=== PATIENT | female | born 1955 | race African-American/Black ===

== ENCOUNTER 2017-12-31 13:52 | Emergency (ER) | payer BC, OTHER ==
--- OUTSIDE RECORDS SUMMARY | 2017-12-31 13:54 | XMS REPORT | Clinical Summary ---
:1955 Author Organization [facility] Address [address] [place] [id number] Care Team Providers Name Role Phone Daniel Rodriguez MD Primary Care Provider Allergies Active Allergy Reactions Severity Noted Date Comments Soy 05/03/2016 Sulfa (Sulfonamide Antibiotics) 05/03/2016 Medications Medication Sig Dispensed Refills Start Date End Date Status gabapentin (NEURONTIN) 100 mg 0 08/10/2016 Active capsule Active Problems No known active problems Encounters Date Type Specialty Care Team Description 10/04/2017 Office Visit Orthopedic Surgery Tory Mancuso Primary osteoarthritis of MARY Dent right knee (Primary Dx) after 12/30/2016 Social History Tobacco Use Types Packs/Day Years Used Date Never Smoker Smokeless Tobacco: Never Used Alcohol Use Drinks/Week oz/Week Comments No Sex Assigned at Date Recorded Not on file Job Start Date Occupation Industry Not on file Not on file Not on file Travel History Travel Start Travel End No recent travel history available. Last Filed Vital Signs Vital Sign Reading Time Taken Blood Pressure - - Pulse - - Temperature - - Respiratory Rate - - Oxygen Saturation - - Inhaled Oxygen Concentration - - Weight 127 kg (280 lb) 10/04/2017 2:33 PM CDT Height 166.4 cm (5' 5.5") 10/04/2017 2:33 PM CDT Body Mass Index 45.89 10/04/2017 2:33 PM CDT Plan of Treatment Date Type Specialty Care Team Description 04/06/2018 Office Visit Orthopedic Surgery Sg Castro MD [address] [place] [address] Health Maintenance Due Date Last Done Comments CERVICAL CANCER SCREENING 02/08/1976 BREAST CANCER SCREENING 2005 COLON CANCER SCREENING 2005 SHINGRIX VACCINE (#1) 2005 ZOSTER VACCINE 2015 INFLUENZA VACCINE 09/20/2017 Procedures Procedure Name Priority Date/Time Associated Diagnosis Comments CT ARTHROCENTESIS Routine 10/04/2017 2:15 Primary Results for this ASPIR&/INJ MAJOR PM CDT osteoarthritis of procedure are in JT/BURSA W/O US right knee the results section. after 12/30/2016 Results Large Joint Arthrocentesis (10/04/2017 2:15 PM CDT) Narrative Performed At Tory Mancuso PA-C 10/04/20172:58 PM Large Joint Arthrocentesis Consent given by: patient Site marked: site marked Timeout: Immediately prior to procedure a time out was called to verify the correct patient, procedure, equipment, student support services director and site/side marked as required Supporting Documentation Indications: pain and diagnostic evaluation Procedure Details Preparation: Patient was prepped and draped in the usual sterile fashion Ultrasound guided: no Location: knee - R knee Right side: Needle size: 22 G Approach: anterolateral Right knee medications administered: 40 mg methylPREDNISolone acetate 40 mg/mL; 2 mL bupivacaine 0.25 % (2.5 mg/mL); 2 mL lidocaine 10 mg/mL (1 %) Patient tolerance: patient tolerated the procedure well with no immediate complications after 12/30/2016 Insurance Payer Benefit Plan / Group Subscriber ID Type Phone Address [facility]UE [employer]SSENTIALS xxxxxxxxxxxx O xxxxxxxxx Advance Directives Patient has advance care planning documents on file. For more information, please contact:[place] [address]
[2017-12-31 14:52] LABS: Absolute Lymphocytes (CBC) 1.7 K/uL (0.7-4.9); Absolute Monocytes 0.5 K/uL (0.1-1.3); Absolute Neutrophil 4.6 K/uL (1.8-8.0); Basophils % 0.6 % (0-1.3); Hematocrit 39.6 % (36.0-45.0); Lymphocytes % 24.1 % (15.3-44.8); MCV 75.3 fL (80-100); MPV 9.7 fL (7.6-11.3); Monocytes % 7.7 % (3.3-12.3); Protime INR 1.08; RBC Red Blood Cell Count 5.25 M/uL (3.86-4.86)
[2017-12-31 15:04] LABS: BUN Blood Urea Nitrogen 8 mg/dL (7-18); Bicarbonate 27 mmol/L (21-32); Glucose Level 83 mg/dL (74-106); Potassium 3.6 mmol/L (3.5-5.1); Sodium Level 142 mmol/L (136-145); Troponin (Emerg Dept Use Only) < 0.02 ng/mL (0.0-0.045)
--- NOTE | 2017-12-31 15:19 | RAD REPORT ---
EXAM DESCRIPTION: RAD - Chest Single View - 12/31/2017 2:39 pm CLINICAL HISTORY: Left-sided chest pain COMPARISON: April 2016 TECHNIQUE: AP portable chest image was obtained 1435 hours . FINDINGS: Lungs are clear. Heart and vasculature are normal. No measurable pleural effusion and no p neumothorax. No acute bony abnormality seen. No acute aortic findings suspected. IMPRESSION: No acute cardiopulmonary process. No significant interval change.
--- NOTE | 2017-12-31 16:03 | RAD REPORT ---
EXAM DESCRIPTION: CT - Chest Abdomen Pelvis W Cont - 12/31/2017 3:43 pm CLINICAL HISTORY: Left-sided chest pain, abdominal pain COMPARISON: None. TECHNIQUE: Following dynamic enhancement using 100 milliliters nonionic IV contrast, axial imaging o f the chest, abdomen and pelvis was performed. Biphasic technique was utilized through the abdomen. Oral contrast was administered. All CT scans are performed using dose optimization technique as appropriate and may include automated exposure control or mA/KV adjustment according to patient size. FINDINGS: No suspicious mass or infiltrate in the lung parenchyma. No pleural effusion, pleural thic kening or pneumothorax. No significant aortic or pulmonary arterial tree finding. Nonspecific mediast inal and hilar noncalcified lymph nodes are present. These are probably reactive. No comparison is av ailable. No chest wall mass or axillary lymphadenopathy. The liver, spleen and pancreas show no suspicious findings. Gallbladder and biliary tree are unremark able. Gallstones can be occult on CT imaging. Symmetric renal function is seen with no mass or hydro nephrosis. No adrenal abnormalities. No gastric dilatation or wall thickening. No acute small bowel finding. No appendicitis findings. Fro m cecum through descending colon no significant colon process seen. Moderate sigmoid diverticulosis i s present. Proximal sigmoid colon is slightly thickened in appearance. There is trace amount of stran ding in the adjacent fat. Distal sigmoid and rectum show no acute finding. Uterus and ovaries show no suspicious findings. No acute or destructive bony process. Degenerative changes are present. No significant vascular findings. IMPRESSION: Minimal sigmoid diverticulitis changes are evident. No acute CT chest finding. Patient has nonspecific mediastinal and hilar lymph nodes without lung mass acute lung parenchymal pr ocess. These are likely reactive but no comparison available to establish stability.Repeat CT chest s tudy in 4-6 months could be performed to monitor for stability.
--- NOTE | 2017-12-31 18:31 | EDPHYS ---
Physician Documentation [facility] Name: Ana Cristina Olivera Age: 62 yrs Sex: Female : 1955 Arrival Date: 12/31/2017 Time: 13:55 Bed 5 Private MD: Daniel Rodriguez E ED Physician Richard John HPI: 12/31 17:25 This 62 yrs old Black Female presents to ER via Ambulatory with complaints of Chest gs Pain, Flank Pain. 17:25 Onset: suddenly, just prior to arrival. The pain does not radiate. Associated signs and gs symptoms: Pertinent negatives: shortness of breath. The chest pain is described as sharp. Duration: The patient or guardian reports a single episode, that is still ongoing, but improving. Modifying factors: The symptoms are alleviated by nothing. the symptoms are aggravated by nothing. Severity of pain: At its worst the pain was severe in the emergency department the pain has improved markedly. Historical: - Allergies: 14:00 Soy (Rash); hb 14:00 Sulfa (Sulfonamide Antibiotics) (Hives); hb - PMHx: 14:00 Depression; hb - PSHx: 14:00 None; hb - Immunization history:: Adult Immunizations up to date. - Social history:: Smoking status: Patient/guardian denies using tobacco. - Ebola Screening: : No symptoms or risks identified at this time. ROS: 17:25 All other systems are negative. gs Exam: 17:25 Head/Face: Normocephalic, atraumatic. Eyes: Pupils equal round and reactive to light, gs extra-ocular motions intact. Lids and lashes normal. Conjunctiva and sclera are non-icteric and not injected. Cornea within normal limits. Periorbital areas with no swelling, redness, or edema. ENT: Nares patent. No nasal discharge, no septal abnormalities noted. Tympanic membranes are normal and external auditory canals are clear. Oropharynx with no redness, swelling, or masses, exudates, or evidence of obstruction, uvula midline. Mucous membranes moist. Neck: Trachea midline, no thyromegaly or masses palpated, and no cervical lymphadenopathy. Supple, full range of motion without nuchal rigidity, or vertebral point tenderness. No Meningismus. Chest/axilla: Normal chest wall appearance and motion. Nontender with no deformity. No lesions are appreciated. Cardiovascular: Regular rate and rhythm with a normal S1 and S2. No gallops, murmurs, or rubs. Normal PMI, no JVD. No pulse deficits. Respiratory: Lungs have equal breath sounds bilaterally, clear to auscultation and percussion. No rales, rhonchi or wheezes noted. No increased work of breathing, no retractions or nasal flaring. Abdomen/GI: Soft, non-tender, with normal bowel sounds. No distension or tympany. No guarding or rebound. No evidence of tenderness throughout. Back: No spinal tenderness. No costovertebral tenderness. Full range of motion. Skin: Warm, dry with normal turgor. Normal color with no rashes, no lesions, and no evidence of cellulitis. MS/ Extremity: Pulses equal, no cyanosis. Neurovascular intact. Full, normal range of motion. Neuro: Awake and alert, GCS 15, oriented to person, place, time, and situation. Cranial nerves II-XII grossly intact. Motor strength 5/5 in all extremities. Sensory grossly intact. Cerebellar exam normal. Normal gait. 17:25 Constitutional: The patient appears alert, awake. 17:25 ECG was reviewed by the Attending Physician. Vital Signs: 13:59 BP 168 / 91; Pulse 73; Resp 13; Temp 97.9; Pulse Ox 99% ; Weight 127.01 kg; Height 5 hb ft. 5 in. (165.10 cm); Pain 6/10; 15:34 BP 158 / 92; Pulse 75; Resp 18; Pulse Ox 100% on R/A; hj 16:30 BP 150 / 90; Pulse 79; Resp 18; Pulse Ox 100% on R/A; hj 17:30 BP 148 / 88; Pulse 74; Resp 18; Pulse Ox 100% on R/A; hj 18:11 BP 150 / 89; Pulse 76; Resp 18; Pulse Ox 100% on R/A; hj 13:59 Body Mass Index 46.59 (127.01 kg, 165.10 cm) hb MDM: 14:19 Patient medically screened. gs 17:25 Differential diagnosis: coronary artery disease chest wall pain, thoracic aortic gs disection. Data reviewed: vital signs, nurses notes. Counseling: I had a detailed discussion with the patient and/or guardian regarding: the historical points, exam findings, and any diagnostic results supporting the discharge/admit diagnosis, lab results, radiology results, the need for outpatient follow up. 18:00 Response to treatment: the patient's symptoms have resolved after treatment, the patient's pain is gone, the patient's condition has returned to base line. 12/31 14:18 Order name: Basic Metabolic Panel; Complete Time: 16:04 12/31 14:18 Order name: CBC with Diff; Complete Time: 16:04 12/31 14:18 Order name: PT-INR; Complete Time: 16:04 12/31 14:18 Order name: Troponin (emerg Dept Use Only); Complete Time: 16:04 12/31 14:32 Order name: Urine Dipstick--Ancillary (enter results) 12/31 14:18 Order name: XRAY Chest (1 view); Complete Time: 16:04 12/31 14:18 Order name: EKG; Complete Time: 14:19 12/31 14:18 Order name: Cardiac monitoring; Complete Time: 14:26 12/31 14:18 Order name: EKG - Nurse/Tech; Complete Time: 14: 12/31 14:18 Order name: IV Saline Lock; Complete Time: 14:26 12/31 14:18 Order name: Labs collected and sent; Complete Time: 14: 12/31 14:18 Order name: CT Chest, Abdomen, Pelvis - W/Contrast; Complete Time: 16: 12/31 16:59 Order name: Troponin (emerg Dept Use Only); Complete Time: 18:00 12/31 14:18 Order name: O2 Per Protocol; Complete Time: 14: 12/31 14:18 Order name: O2 Sat Monitoring; Complete Time: 14: EC:25 Rate is 68 beats/min. Rhythm is regular. OR interval is normal. QT interval is normal. gs T waves are Normal. No ST changes noted. Clinical impression: Normal ECG. Administered Medications: No medications were administered Disposition: 12/31/17 18:01 Discharged to Home. Impression: Chest pain, unspecified, Diverticulosis of large intestine without perforation or abscess without bleeding. - Condition is Stable. - Discharge Instructions: Nonspecific Chest Pain, Diverticulitis, [id number]. - Prescriptions for Flagyl 500 mg Oral Tablet - take 1 tablet by ORAL route every 12 hours for 5 days; 10 tablet. Keflex 500 mg Oral Capsule - take 1 capsule by ORAL route every 8 hours for 5 days; 15 capsule. - Medication Reconciliation Form, Thank You Letter, Antibiotic Education, Prescription Opioid Use form. - Follow up: Private Physician; When: 1 - 2 days; Reason: Re-evaluation by your physician. Signatures: Dispatcher [employer] EDNate Guy RN RN hj Baxter, Heather, RN RN hb Starr, Gregory, MD MD gs Corrections: (The following items were deleted from the chart) 18:13 18:01 12/31/2017 18:01 Discharged to Home. Impression: Chest pain, unspecified; hj Diverticulosis of large intestine without perforation or abscess without bleeding. Condition is Stable. Forms are Medication Reconciliation Form, Thank You Letter, Antibiotic Education, Prescription Opioid Use. Follow up: Private Physician; When: 1 - 2 days; Reason: Re-evaluation by your physician. gs
--- NOTE | 2017-12-31 18:31 | ER ---
Nurse's Notes [facility] Name: Ana Cristina Olivera Age: 62 yrs Sex: Female : 1955 Arrival Date: 12/31/2017 Time: 13:55 Bed 5 Private MD: Daniel Rodriguez E Diagnosis: Chest pain, unspecified;Diverticulosis of large intestine without perforation or abscess without bleeding Presentation: 12/31 13:57 Presenting complaint: Patient states: Sudden sharp left sided chest pain that started hb while driving car 2 hrs ago. Denies SOB/nausea. Transition of care: patient was not received from another setting of care. Onset of symptoms was December 31, 2017. Risk Assessment: Do you want to hurt yourself or someone else? Patient reports no desire to harm self or others. Care prior to arrival: None. 13:57 Method Of Arrival: Ambulatory hb 13:57 Acuity: JOEL 3 hb 14:16 Initial Sepsis Screen: Does the patient meet any 2 criteria? No. Patient's initial hj sepsis screen is negative. Does the patient have a suspected source of infection? No. Patient's initial sepsis screen is negative. Triage Assessment: 14:15 General: Appears in no apparent distress. uncomfortable, Behavior is calm, cooperative, hj appropriate for age. Pain: Complains of pain in chest. Cardiovascular: Capillary refill < 3 seconds Patient's skin is warm and dry. Historical: - Allergies: 14:00 Soy (Rash); hb 14:00 Sulfa (Sulfonamide Antibiotics) (Hives); hb - PMHx: 14:00 Depression; hb - PSHx: 14:00 None; hb - Immunization history:: Adult Immunizations up to date. - Social history:: Smoking status: Patient/guardian denies using tobacco. - Ebola Screening: : No symptoms or risks identified at this time. Screenin:15 Abuse screen: Denies threats or abuse. Denies injuries from another. Nutritional hj screening: No deficits noted. Tuberculosis screening: No symptoms or risk factors identified. Fall Risk None identified. Assessment: 14:16 General: Appears in no apparent distress. uncomfortable, Behavior is calm, cooperative, hj appropriate for age. Pain: Pain does not radiate. Neuro: Level of Consciousness is awake, alert, obeys commands, Oriented to person, place, time, situation, Appropriate for age. Cardiovascular: Capillary refill < 3 seconds Patient's skin is warm and dry. Respiratory: Airway is patent Respiratory effort is even, unlabored, Respiratory pattern is regular, symmetrical. GI: No signs and/or symptoms were reported involving the gastrointestinal system. : No signs and/or symptoms were reported regarding the genitourinary system. EENT: No signs and/or symptoms were reported regarding the EENT system. Derm: No signs and/or symptoms reported regarding the dermatologic system. Musculoskeletal: No signs and/or symptoms reported regarding the musculoskeletal system. 14:16 Pain: Pain began 2 hours ago. hj 15:33 Reassessment: Patient and/or family updated on plan of care and expected duration. Pain hj level reassessed. Patient is alert, oriented x 3, equal unlabored respirations, skin warm/dry/pink. wheeled to CT:. Vital Signs: 13:59 BP 168 / 91; Pulse 73; Resp 13; Temp 97.9; Pulse Ox 99% ; Weight 127.01 kg; Height 5 hb ft. 5 in. (165.10 cm); Pain 6/10; 15:34 BP 158 / 92; Pulse 75; Resp 18; Pulse Ox 100% on R/A; hj 16:30 BP 150 / 90; Pulse 79; Resp 18; Pulse Ox 100% on R/A; hj 17:30 BP 148 / 88; Pulse 74; Resp 18; Pulse Ox 100% on R/A; hj 18:11 BP 150 / 89; Pulse 76; Resp 18; Pulse Ox 100% on R/A; hj 13:59 Body Mass Index 46.59 (127.01 kg, 165.10 cm) hb ED Course: 13:55 Patient arrived in ED. rg4 13:56 Daniel Rodriguez MD is Private Physician. rg4 13:59 Triage completed. hb 14:00 Arm band placed on left wrist. hb 14:02 Nate Doe RN is Primary Nurse. hj 14:08 Richard John MD is Attending Physician. gs 14:16 Patient has correct armband on for positive identification. Placed in gown. Bed in low hj position. Call light in reach. Side rails up X 1. distribution associate on. Pulse ox on. NIBP on. 14:17 Patient maintains SpO2 saturation greater than 95% on room air. hj 14:23 Radiology exam delayed due to lab results not completed at this time. (BUN/Creatinine). cw1 14:38 EKG done, by ED staff, reviewed by Richard John MD. Initial lab(s) drawn, by me, sent meri to lab. Inserted saline lock: 22 gauge in right antecubital area, using aseptic technique. Blood collected. 14:39 Urine collected: clean catch specimen, cloudy, yisel colored. jb1 14:40 XRAY Chest (1 view) In Process Unspecified. EDMS 15:43 CT Chest, Abdomen, Pelvis - W/Contrast In Process Unspecified. EDMS 15:43 CT completed. Patient tolerated procedure well. Patient moved back from CT. bq 18:10 No provider procedures requiring assistance completed. IV discontinued, intact, hj bleeding controlled, No redness/swelling at site. Pressure dressing applied. Administered Medications: No medications were administered Outcome: 18:01 Discharge ordered by MD. gs 18:10 Discharged to home ambulatory. hj 18:10 Condition: stable 18:10 Discharge instructions given to patient, Instructed on discharge instructions, follow up and referral plans. medication usage, Demonstrated understanding of instructions, follow-up care, medications, Prescriptions given X 2. 18:13 Patient left the ED. Signatures: Dispatcher [employer] EDMS He Cutler jb1 Stefanie Baxter bq Joycelyn Guillermina cw1 Nate Doe RN RN hj Baxter, Heather, Cheryl Young RN rg4 Richard John MD MD Corrections: (The following items were deleted from the chart) 14:33 14:16 Pain: Pain does not radiate. Pain began [facility]
[2017-12-31 21:24] LABS: Urine Blood TRACE (NEG); Urine Glucose NEGATIVE (NEG); Urine Protein NEGATIVE (NEG); Urine Specific Gravity 1.015 (1.005-1.030); Urine pH 5.5 (5.0-7.0)
--- NOTE | 2018-01-01 07:04 | EKG ---
Test Date: 2017-12-31 Test Time: 14:14:04 In Store Marketing Associate: SHANNON MEASUREMENT RESULTS: Intervals: Rate: 68 FL: 178 QRSD: 86 QT: 392 QTc: 416 [place]: P: 40 FL: 178 QRS: -14 T: 44 INTERPRETIVE STATEMENTS: Normal sinus rhythm Cannot rule out Anterior infarct, age undetermined Abnormal ECG Compared to ECG 05/12/2016 23:12:18 Myocardial infarct finding now present Electronically Signed On 01-01-18 07:02:39 POT WASHER by Saran Patel
== END 2017-12-31 18:13 | disposition home or self-care (01) ==
LOC: ER 13:52
DX: K57.30 Diverticulosis of large intestine without perforation or abscess without bleeding (principal); Z88.2 Allergy status to sulfonamides; Z91.018 Allergy to other foods
CPT/HCPCS: 36415; 71045; 71260; 74177; 80048; 81003; 84484; 85025; 85610; 93005; 99285; Q9967

== ENCOUNTER 2020-02-09 16:20 | Emergency (ER) | payer BC, OTHER ==
--- OUTSIDE RECORDS SUMMARY | 2020-02-09 16:22 | XMS REPORT | Continuity of Care Document ---
:[address] [facility] t Address [address] [place] [address] Care Team Providers Name Role Phone Michael Quevedo MD Primary Care Physician WESLEY Attending Clinician Unavailable VASCULAR Attending Clinician Unavailable ANGE Attending Clinician Unavailable Problems Condition Condition Condition Status Onset Resolution Last Treating Co mments Source Name Details Category Date Date Treatment Clinician Date Polyarthra Polyarthra Problem Active U nivers lgia lgia ity of [facility] ans Low back Low back Problem Active Unive rs pain pain ity of [facility] ans Vitamin D Vitamin D Problem Active Uni vers deficiency deficiency it y of [facility] ans Depression Depression Problem Active U nivers ity of [facility] ans Spinal Spinal Problem Active Univers stenosis stenosis ity of [facility] ans Leg Leg Problem Active Univers cramping cramping ity of [facility] ans History of History of Problem Resolve Univers arthritis arthritis d [facility] [place] [facility] ans History of History of Problem Resolve Univers asthma asthma d ity of [facility] ans Chronic Chronic Problem Active Univers venous venous ity [place] [facility] ans Allergies, Adverse Reactions, Alerts Allergy Allergy Status Severity Reaction(s) Onset Inactive Treating Comm ents Source Name Type Date Date Clinician Soy Propensi Active [place] ty to 05-03 [facility]i adverse 00:00: st reaction 00 s to drug Sulfa Propensi Active [place] (Sulfona ty to 05-03 Method[facility] mide adverse 00:00: st Antibiot reaction 00 ics) s to drug Meloxica drug Active Univers m TABS allergy [facility] [place] Physici ans Sertrali drug Active Univers ne HCl allergy ity of TABS [place] [facility] ans sulfa drug Active Univers allergy [facility] [place] Phys[facility] ans Family History Family Member Diagnosis Comments Start Date Stop Date Source Mother Family history of [facility] [place] kidney disease Physicians Mother Family history of [facility] [place] hypertension Physicians Social History Social Habit Start Date Stop Date Quantity Comments Source Sex Assigned At [facility] ethodist Tobacco use and 2017-10-04 2017-10-04 Never used [facility] ethodist exposure 00:00:00 00:00:00 Alcohol intake 2017-10-04 2017-10-04 Current [facility] thodist 00:00:00 00:00:00 non-drinker of alcohol (finding) Smoking Status Start Date Stop Date Source Never smoker [place] [facility] t Medications Ordered Filled Start Stop Current Ordering Indication Dosage Frequency Signature Comments Components Source Medication Medication Date Date Medication? Clinician (SIG) Name Name gabapentin Yes [place] (NEURONTIN) 08-10 [facility] 100 mg 00:00: st capsule 00 Multi-Vitam Multi-Vitam Yes U nivers in TABS in TABS [facility] [place] Physici ans Magnesium Magnesium Yes Unive rs TABS TABS [facility]y [facility] [place] Physici ans Zyrtec TABS Zyrtec TABS Yes U nivers [facility] of [place] Physici ans Biotin CAPS Biotin CAPS Yes U nivers [facility] [place] Physici ans Garlic TBEC Garlic TBEC Yes U nivers [facility] [place] Physici ans B Complex B Complex Yes Unive rs TABS TABS [facility] [place] Physici ans Procedures Procedure Date / Time Performed Performing Clinician Sourc e CVRAD - Lower Venous 2018-07-24 00:00:00 [facility] [place] Comp - [id number] Physicians History of Varicose [facility] [place] Vein Ligation Physicians Plan of Care Planned Activity Planned Date Details Comments Source Future Scheduled 2019-09-21 INFLUENZA VACCINE [place] [facility] 00:00:00 [code = INFLUENZA VACCINE] Future Scheduled 2005 BREAST CANCER [facility] thodist Test 00:00:00 SCREENING [code = BREAST CANCER SCREENING] Future Scheduled 2005 COLONOSCOPY SCREENING [facility] Test 00:00:00 [code = COLONOSCOPY SCREENING] Future Scheduled 2005 SHINGLES VACCINES [place] [facility] 00:00:00 (#1) [code = SHINGLES VACCINES (#1)] Future Scheduled 1976-02-08 Screening for [facility] thodist Test 00:00:00 malignant neoplasm of cervix (procedure) [code = 504018900] Future Scheduled 1971 COVID-19 VACCINE (#1) [facility] Test 00:00:00 [code = COVID-19 VACCINE (#1)] Encounters Start End Encounter Admission Attending Care Care Encounter Source Date/Time Date/Time Type Type Clinicians Facility Department ID 2018-07-23 2018-07-23 DILIP Duncan Thoracic [id number] Univers 10:00:00 10:00:00 t; WEI OLSON, Surgery - i ty loli CARVAJAL [facility] 2018-07-23 2018-07-23 Chely VASCULARDILIP Thoracic [id number] Univers 09:00:00 09:00:00 t; FINLEY Surgery - ity of [facility] Physici ans 2018-05-21 2018-05-21 DILIP Duncan Cardiothora [id number] Univers 11:30:00 11:30:00 t; WEI OLSON, cic and Radha M.D. [facility] ans 2017-12-08 2017-12-08 DILIP Molina [id number] Univers 10:00:00 10:00:00 t; RANDY CASSIDY ity of [place], M.D. [facility] Physici ans 2017-09-08 2017-09-08 DILIP Molina [id number] Univers 16:00:00 16:00:00 t; RANDY CASSIDY ity [facility] [place], [facility] 2017-06-09 2017-06-09 DILIP Molina [id number] Univers 11:00:00 11:00:00 t; RANDY CASSIDY ity of [place], M.[facility]. [facility] ans 2016-08-03 2016-08-03 DILIP Molina [id number] Univers 09:30:00 09:30:00 t; RANDY CASSIDY ity of [place], M.D. [facility]. Physicyumi ans 2016-07-20 2016-07-20 Appointmen [facility] [id number] Univers 09:30:00 09:30:00 t; RANDY CASSIDY ity of Fred PADILLA M.D. Physici ans Results This patient has no known results.
--- OUTSIDE RECORDS SUMMARY | 2020-02-09 16:22 | XMS REPORT | Clinical Summary ---
:1955 Author Organization [facility] Address [address] [place] [address] Care Team Providers Name Role Phone Michael Quevedo MD Primary Care Provider Allergies Active Allergy Reactions Severity Noted Date Comments Soy 05/03/2016 Sulfa (Sulfonamide Antibiotics) 7 Medications Medication Sig Dispensed Refills Start Date End Date Status gabapentin (NEURONTIN) 100 mg 0 08/10/2016 Active capsule Active Problems No known active problems Medical History Medical History Date Comments Obesity Hyperlipidemia Hypertension Social History Tobacco Use Types Packs/Day Years Used Date Never Smoker Smokeless Tobacco: Never Used Alcohol Use Drinks/Week oz/Week Comments No Sex Assigned at Date Recorded Not on file Last Filed Vital Signs Not on file Plan of Treatment Health Maintenance Due Date Last Done Comments COVID-19 VACCINE (#1) 1971 CERVICAL CANCER SCREENING 02/08/1976 BREAST CANCER SCREENING 2005 COLONOSCOPY SCREENING 2005 SHINGLES VACCINES (#1) 2005 INFLUENZA VACCINE 09/21/2019 Results Not on fileafter 02/08/2019 Advance Directives For more information, please contact: [phone] Type Date 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
[2020-02-09] MEDS ORDERED: KETOROLAC 30 MG/ML INJ ONE (17:30)
[2020-02-09] MEDS ORDERED: HYDROCODONE/APAP 5/325 MG TAB ONE (17:30)
--- NOTE | 2020-02-09 18:23 | RAD REPORT ---
EXAM DESCRIPTION: RAD - Foot Right 3 View - 02/09/2020 5:39 pm CLINICAL HISTORY: right heel pain COMPARISON: No comparisons FINDINGS: A large plantar calcaneal spur is noted. No acute fracture or dislocation.
--- NOTE | 2020-02-09 18:34 | EDPHYS ---
Physician Documentation [facility] Name: Ana Cristina Olivera Age: 65 yrs Sex: Female : 1955 Arrival Date: 02/09/2020 Time: 16:25 Bed 20 Private MD: ED Physician Johan Swanson HPI: 02/08 18:30 This 65 yrs old Black Female presents to ER via Ambulatory with complaints of Foot Pain.jmm 18:30 The patient presents with pain. Onset: The symptoms/episode began/occurred gradually, 2 jmm day(s) ago. Modifying factors: The symptoms are alleviated by nothing. the symptoms are aggravated by weight bearing. Associated signs and symptoms: Pertinent negatives calf tenderness, fever, swelling, tingling. Historical: - Allergies: 16:40 Sulfa (Sulfonamide Antibiotics) (Hives); iw 16:40 Soy (rash); iw - PMHx: 16:40 Depression; carpal tunnel; iw - PSHx: 16:40 None; iw - Immunization history:: Adult Immunizations up to date. - Social history:: Smoking status: Patient denies any tobacco usage or history of. ROS: 18:30 Constitutional: Negative for fever, chills, and weight loss, Cardiovascular: Negative jmm for chest pain, palpitations, and edema, Respiratory: Negative for shortness of breath, cough, wheezing, and pleuritic chest pain, Abdomen/GI: Negative for abdominal pain, nausea, vomiting, diarrhea, and constipation. 18:30 MS/extremity: Positive for pain. 18:30 All other systems are negative. Exam: 18:30 Constitutional: This is a well developed, well nourished patient who is awake, alert, jmm and in no acute distress. Head/Face: atraumatic. Eyes: EOMI, no conjunctival erythema appreciated ENT: Moist Mucus Membranes Neck: Trachea midline, Supple Chest/axilla: Normal chest wall appearance and motion. Cardiovascular: Regular rate and rhythm. No edema appreciated Respiratory: Normal respirations, no respiratory distress appreciated Abdomen/GI: Non distended, soft Back: Normal ROM Skin: General appearance color normal 18:30 Musculoskeletal/extremity: plantar heel ttp, full dorsalis pulse. 18:30 Skin: Appearance: Color: normal in color. 18:30 Neuro: Orientation: is normal, Mentation: is normal, Memory: is normal. 18:30 Psych: Behavior/mood is pleasant, cooperative. Vital Signs: 16:38 BP 154 / 77; Pulse 84; Resp 16; Temp 98.8; Pulse Ox 100% on R/A; Weight 131.54 kg; iw Height 5 ft. 4 in. (162.56 cm); Pain 8/10; 17:45 BP 151 / 75; Pulse 80; Resp 17; Pulse Ox 99% on R/A; tw2 18:54 BP 144 / 80; Pulse 77; Resp 17; Pulse Ox 98% on R/A; tw2 19:06 BP 147 / 78; Pulse 70; Resp 16; Pulse Ox 99% ; rr5 16:38 Body Mass Index 49.78 (131.54 kg, 162.56 cm) iw MDM: 17:04 Patient medically screened. [facility] 18:32 Data reviewed: vital signs, nurses notes. Counseling: I had a detailed discussion with michael the patient and/or guardian regarding: the historical points, exam findings, and any diagnostic results supporting the discharge/admit diagnosis, radiology results, the need for outpatient follow up, to return to the emergency department if symptoms worsen or persist or if there are any questions or concerns that arise at home. 02/08 17:06 Order name: Foot Right 3 View XRAY; Complete Time: 18:30 [facility] Administered Medications: 17:18 Drug: Ketorolac 30 mg Route: IM; Site: right deltoid; tw2 19:05 Follow up: Response: No adverse reaction; Pain is decreased rr5 17:19 Drug: [place] 5 mg-325 mg 1 tabs {Note: rass 0.} Route: PO; tw2 19:05 Follow up: Response: No adverse reaction; Pain is decreased; RASS: Alert and Calm (0) rr5 Disposition: 02/09 14:33 Co-signature as Attending Physician, Johan Swanson MD. rn Disposition: 02/09/20 18:33 Discharged to Home. Impression: Calcaneal spur, right foot. - Condition is Stable. - Discharge Instructions: Heel Spur. - Prescriptions for orphenadrine citrate 100 mg Oral Tablet Sustained Release - take 1 tablet by ORAL route 2 times per day As needed; 20 tablet. - Medication Reconciliation Form, Thank You Letter, Antibiotic Education, Prescription Opioid Use form. - Follow up: Silvano Herrera DPM; When: 2 - 3 days; Reason: Recheck today's complaints, Continuance of care, Re-evaluation by your physician. Signatures: Dispatcher [employer] Ismael Wolfe PA PA jmm Williams, Irene, RN Johan Suarez MD MD rn Wise, Tara, RN RN tw2 Reginaldo Shields RN RN rr5 Corrections: (The following items were deleted from the chart) 02/08 19:08 18:33 02/09/2020 18:33 Discharged to Home. Impression: Calcaneal spur, right foot. rr5 Condition is Stable. Forms are Medication Reconciliation Form, Thank You Letter, Antibiotic Education, Prescription Opioid Use. Follow up: Silvano Herrera; When: 2 - 3 days; Reason: Recheck today's complaints, Continuance of care, Re-evaluation by your physician. michael
--- NOTE | 2020-02-09 18:34 | ER ---
Nurse's Notes [facility] Name: Ana Cristina Olivera Age: 65 yrs Sex: Female : 1955 Arrival Date: 02/09/2020 Time: 16:25 Bed 20 Private MD: Diagnosis: Calcaneal spur, right foot Presentation: 02/08 16:38 Chief complaint: Patient states: has pain in right heel since Monday, does not recall iw an injury. Coronavirus screen: At this time, the client does not indicate any symptoms associated with coronavirus-19. Ebola Screen: Patient negative for fever greater than or equal to 101.5 degrees Fahrenheit, and additional compatible Ebola Virus Disease symptoms Patient denies exposure to infectious person. Patient denies travel to an Ebola-affected area in the 21 days before illness onset. No symptoms or risks identified at this time. Initial Sepsis Screen: Does the patient meet any 2 criteria? No. Patient's initial sepsis screen is negative. Does the patient have a suspected source of infection? No. Patient's initial sepsis screen is negative. Risk Assessment: Do you want to hurt yourself or someone else? Patient reports no desire to harm self or others. Onset of symptoms was February 07, 2020. 16:38 Method Of Arrival: Ambulatory iw 16:38 Acuity: JOEL 4 iw Historical: - Allergies: 16:40 Sulfa (Sulfonamide Antibiotics) (Hives); iw 16:40 Soy (rash); iw - PMHx: 16:40 Depression; carpal tunnel; iw - PSHx: 16:40 None; iw - Immunization history:: Adult Immunizations up to date. - Social history:: Smoking status: Patient denies any tobacco usage or history of. Screenin:57 Abuse screen: Denies threats or abuse. Nutritional screening: No deficits noted. tw2 Tuberculosis screening: No symptoms or risk factors identified. Fall Risk None identified. Assessment: 16:45 General: Appears in no apparent distress. obese, well groomed, Behavior is calm, tw2 cooperative, appropriate for age. Pain: Complains of pain in right foot. Neuro: Level of Consciousness is awake, alert, obeys commands, Oriented to person, place, time, situation. Cardiovascular: Patient's skin is warm and dry. Respiratory: Airway is patent Respiratory effort is even, unlabored, Respiratory pattern is regular, symmetrical. Musculoskeletal: Circulation, motion, and sensation intact. Range of motion: intact in all extremities, Reports pain in right foot. 17:26 Reassessment: xray at bedside at this time. tw2 17:45 Reassessment: Patient appears in no apparent distress at this time. No changes from tw2 previously documented assessment. Patient and/or family updated on plan of care and expected duration. Pain level reassessed. Patient is alert, oriented x 3, equal unlabored respirations, skin warm/dry/pink. 18:54 Reassessment: Patient appears in no apparent distress at this time. No changes from tw2 previously documented assessment. Patient and/or family updated on plan of care and expected duration. Pain level reassessed. Patient is alert, oriented x 3, equal unlabored respirations, skin warm/dry/pink. 19:07 Reassessment: Patient appears in no apparent distress at this time. Patient is alert, rr5 oriented x 3, equal unlabored respirations, skin warm/dry/pink. discharge instruction given and explained without complaints made Patient states feeling better. Patient states symptoms have improved. Vital Signs: 16:38 BP 154 / 77; Pulse 84; Resp 16; Temp 98.8; Pulse Ox 100% on R/A; Weight 131.54 kg; iw Height 5 ft. 4 in. (162.56 cm); Pain 8/10; 17:45 BP 151 / 75; Pulse 80; Resp 17; Pulse Ox 99% on R/A; tw2 18:54 BP 144 / 80; Pulse 77; Resp 17; Pulse Ox 98% on R/A; tw2 19:06 BP 147 / 78; Pulse 70; Resp 16; Pulse Ox 99% ; rr5 16:38 Body Mass Index 49.78 (131.54 kg, 162.56 cm) iw ED Course: 16:25 Patient arrived in ED. rg4 16:39 Triage completed. iw 16:40 Bed in low position. Call light in reach. Pulse ox on. NIBP on. tw2 16:45 Ismael Salas PA is PHCP. [facility] 16:45 Johan Swanson MD is Attending Physician. jmm 16:57 Nicki Riggins, SONALI is Primary Nurse. tw2 17:40 Foot Right 3 View XRAY In Process Unspecified. EDMS 18:33 Silvano Herrera DPM is Referral Physician. jm 19:06 Arm band placed on right wrist. rr5 19:06 No provider procedures requiring assistance completed. Patient did not have IV access rr5 during this emergency room visit. Administered Medications: 17:18 Drug: Ketorolac 30 mg Route: IM; Site: right deltoid; tw2 19:05 Follow up: Response: No adverse reaction; Pain is decreased rr5 17:19 Drug: [place] 5 mg-325 mg 1 tabs {Note: rass 0.} Route: PO; tw2 19:05 Follow up: Response: No adverse reaction; Pain is decreased; RASS: Alert and Calm (0) rr5 Outcome: 18:33 Discharge ordered by MD. michael 19:06 Discharged to home ambulatory. rr5 19:06 Condition: stable 19:06 Discharge instructions given to patient, Instructed on discharge instructions, follow up and referral plans. medication usage, Demonstrated understanding of instructions, follow-up care, medications, Prescriptions given X 1. 19:08 Patient left the ED. rr5 Signatures: Dispatcher [employer] EDMS Ismael Salas PA PA Jessica Mckoy, RN RN iw Nicki Riggins RN RN tw2 Cheryl Gusman 4 Reginaldo Shields, RN RN rr5
[2020-02-11 14:59] VITALS: TEMP 98.8
[2020-02-11 15:03] VITALS: BP 147/78; O2SAT 99
== END 2020-02-09 19:08 | disposition home or self-care (01) ==
LOC: ER 16:20
DX: M77.31 Calcaneal spur, right foot (principal); Z88.2 Allergy status to sulfonamides; Z91.018 Allergy to other foods
CPT/HCPCS: 96372; 99284

== ENCOUNTER 2022-01-05 06:39 | Emergency (ER) | payer BC, OTHER ==
--- OUTSIDE RECORDS SUMMARY | 2022-01-05 06:43 | XMS REPORT | Continuity of Care Document ---
:1955 Author Organization [facility] t Address [address] [place] [address] Care Team Providers Name Role Phone Michael Quevedo MD, Daniel Primary Care Physician [phone] ANG CASTELLANOS Attending Clinician Unavailable WEI OLSON M.D. Attending Clinician Unavailable VASCULAR, GLENN Attending Clinician Unavailable RANDY CASSIDY M.D. Attending Clinician Unavailable Problems Condition Condition Condition Status Onset Resolution Last Treating Co mments Source Name Details Category Date Date Treatment Clinician Date Polyarthra Polyarthra Problem Active U T lgia lgia Physici ans Low back Low back Problem Active [facility] pain pain Physici ans Vitamin D Vitamin D Problem Active [facility] deficiency deficiency Ph ysici ans Depression Depression Problem Active U T Physici ans Spinal Spinal Problem Active [facility] stenosis stenosis Physic i ans Leg Leg Problem Active [facility] cramping cramping Physic i ans History of History of Problem Resolve [facility] arthritis arthritis d Phys ici ans History of History of Problem Resolve UT asthma asthma d Physici ans Chronic Chronic Problem Active [facility] venous venous Physici insufficie insufficie an s ncy ncy No known No known Disease Metho di active active st problems problems Hospit a l Allergies, Adverse Reactions, Alerts Allergy Allergy Status Severity Reaction(s) Onset Inactive Treating Comm ents Source Name Type Date Date Clinician Soy Propensi Active [facility] ty to 3-[facility] st adverse 00:00: Hospita reaction 00 l s to drug Sulfa Propensi Active [facility] (Sulfona ty to 3-14 st mide adverse 00:00: Hospita Antibiot reaction 00 l ics) s to drug Meloxica drug Active UT m TABS allergy Physici ans Sertrali drug Active UT ne HCl allergy Physici TABS ans sulfa drug Active UT allergy Physici ans Family History Family Member Diagnosis Comments Start Date Stop Date Source Mother Family history of kidney [facility] disease Mother Family history of [facility] hypertension Social History Social Habit Start Date Stop Date Quantity Comments Source Tobacco use and 2017-10-04 2017-10-04 Smokeless tobacco Me thodist exposure 00:00:00 00:00:00 non-user Hospital Alcohol intake 2017-10-04 2017-10-04 Current [facility] 00:00:00 00:00:00 non-drinker of Hospital alcohol (finding) Sex Assigned At [birth year] [facility] 00:00:00 [facility]:00 Hospital Smoking Status Start Date Stop Date Source Never smoker [facility] Medications Ordered Filled Start Stop Current Ordering Indication Dosage Frequency Signature Comments Components Source Medication Medication Date Date Medication? Clinician (SIG) Name Name gabapentin Yes [facility] (NEURONTIN) 08-10 100 mg 00:00: Hospita capsule 00 l Multi-Vitam Multi-Vitam Yes U T in TABS in TABS Physici ans Magnesium Magnesium Yes UT TABS TABS Physici ans Zyrtec TABS Zyrtec TABS Yes U T Physici ans Biotin CAPS Biotin CAPS Yes U T Physici ans Garlic TBEC Garlic TBEC Yes U T Physici ans B Complex B Complex Yes UT TABS TABS Physici ans Immunizations Ordered Immunization Filled Immunization Date Status Commen ts Source Name Name PFIZER COVID-19 MRNA 2020-04-19 Completed Meth odist VACCINATION 00:00:00 [facility] PFIZER COVID-19 MRNA 2020-03-29 Completed Meth odist VACCINATION 00:00:00 Hospital Procedures Procedure Date / Time Performed Performing Clinician Sourcameron e CVRAD - Lower Venous Comp - 2018-07-24 00:00:00 [facility] [id number] History of Varicose Vein [facility] Ligation Plan of Care Planned Activity Planned Date Details Comments Source Future Scheduled 2021-12-24 HEPATITIS B VACCINES Met [facility] Test 22:42:21 (1 of 3 - 3-dose series) [code = HEPATITIS B VACCINES (1 of 3 - 3-dose series)] Future Scheduled 2021-12-24 BREAST CANCER [facility] Test 22:42:21 SCREENING [code = BREAST CANCER SCREENING] Future Scheduled 2021-12-24 COLONOSCOPY SCREENING [facility] Test 22:42:21 [code = COLONOSCOPY SCREENING] Future Scheduled 2021-12-24 SHINGLES VACCINES (1 Met [facility] Test 22:42:21 of 2) [code = SHINGLES VACCINES (1 of 2)] Future Scheduled 2021-12-24 65+ P[facility]UMOCOCCAL [facility] Test 22:42:21 VACCINE (1 - PCV) [code = 65+ PNEUMOCOCCAL VACCINE (1 - PCV)] Future Scheduled 2021-12-24 COVID-19 VACCINE (3 - [facility] Test 22:42:21 Booster for Pfizer series) [code = COVID-19 VACCINE (3 - Booster for Pfizer series)] Future Scheduled 2021-12-24 INFLUENZA VACCINE [facility] Test 22:42:21 [code = INFLUENZA VACCINE] Encounters Start End Encounter Admission Attending Care Care Encounter Source Date/Time Date/Time Type Type Clinicians Facility Department ID 2020-04-19 2020-04-19 Outpatient EMANUEL, [facility] [id number] 00:00:00 00:00:00 CHRISTOPHER [facility] 2020-03-29 2020-03-29 Outpatient [facility] [id number] 00:00:00 00:00:[address] 2018-07-23 2018-07-23 DILIP Duncan Thoracic [id number] [place] 10:00:00 10:00:00 t; WEI OLSON, Surgery - P ryland CARVAJAL M.D. [facility] roderick MXavier 2018-07-23 2018-07-23 Chely SOTOMAYOR [facility] Thoracic [id number] [place] 09:00:00 09:00:00 t; [place] Surgery - Phys ici VASCULAR, [facility] 2018-05-21 2018-05-21 DILIP Duncan Cardiothora [id number] [place] 11:30:00 11:30:00 t; WEI OLSON [facility] Fatimah CARVAJAL M.D. Vascular ans M.D. [facility] [place] 2017-12-08 2017-12-08 DILIP Molina UTP [id number] [place] 10:00:00 10:00:00 t; RANDY CASSIDY, Phys [facility] Fred PADILLA ans Fred 2017-09-08 2017-09-08 Appointmen ANGE DILIP [facility] [id number] [place] 16:00:00 16:00:00 t; RANDY CASSIDY Phys ici FAYYAZ, M.D. ans M.D. 2017-06-09 2017-06-09 Appointmen ANGEDILIP [facility] [id number] [place] 11:00:00 11:00:00 t; RANDY CASSIDY Phys ici FAYYAZ, M.D. ans M.D. 2016-08-03 2016-08-03 [facility] KELSIEDILIP [facility]CER [facility] [id number] [place] 09:30:00 09:30:00 t; RANDY CASSIDY Phys ici FAYYAZ, M.D. ans M.D. 2016-07-20 2016-07-20 [facility] ANGEDILIP UTP [id number] [place] 09:30:00 09:30:00 t; RANDY CASSIDY Phys ici FAYYAZ, M.D. ans M.D. Results This patient has no known results.
[2022-01-05 09:12] LABS: SARS-COV-2 RT PCR NEGATIVE (NEGATIVE)
[2022-01-05] MEDS ORDERED: NA CHLORIDE 0.9% 500 ML ONE (09:15)
--- NOTE | 2022-01-05 09:17 | RAD REPORT ---
EXAM DESCRIPTION: Lacy Single View01/05/2022 8:15 am CLINICAL HISTORY: Cough COMPARISON: 2017 FINDINGS: The lungs appear clear of acute infiltrate. The heart is normal size IMPRESSION: No acute abnormalities displayed
[2022-01-05 09:35] LABS: Absolute Lymphocytes (CBC) 1.4 K/uL (0.7-4.9); Hematocrit 39.8 % (36.0-45.0); Lymphocytes % 20.4 % (15.3-44.8); MCV 76.6 fL (80-100); MPV 8.7 fL (7.6-11.3); Protime INR 1.09
[2022-01-05 09:58] LABS: Albumin 3.3 g/dL (3.4-5.0); Bilirubin Direct 0.1 mg/dL (0-0.2); Bilirubin Total 0.4 mg/dL (0.2-1.0); Potassium 4.1 mmol/L (3.5-5.1); Protein, Total 8.3 g/dL (6.4-8.2)
[2022-01-05] MEDS ORDERED: NA CHLORIDE 0.9% 1,000 ML ONE (10:23)
[2022-01-05 10:49] LABS: Urine Blood Negative (Negative); Urine Glucose Negative (Negative); Urine Protein Negative (Negative); Urine Specific Gravity 1.025 (1.005-1.030); Urine pH 7.5 (5.0-7.0)
--- NOTE | 2022-01-05 10:59 | ER ---
Nurse's Notes [facility] Name: Ana Cristina Olivera Age: 66 yrs Sex: Female : 1955 Arrival Date: 01/05/2022 Time: 06:42 Bed 16 Private MD: Diagnosis: Diarrhea, unspecified;Nausea;Acute pharyngitis, unspecified;Abdominal pain, Generalized;Essential (primary) hypertension Presentation: 01/05 07:14 Chief complaint: Patient states: Sore throat, cough, CHERRY, nausea, diarrhea and leg jl7 cramps since 0100 this morning, denies fever. Coronavirus screen: Vaccine status: Patient reports receiving the 2nd dose of the covid vaccine. Client presents with at least one sign or symptom that may indicate coronavirus-19. Ebola Screen: No symptoms or risks identified at this time. Initial Sepsis Screen: Does the patient meet any 2 criteria? No. Patient's initial sepsis screen is negative. Does the patient have a suspected source of infection? No. Patient's initial sepsis screen is negative. Risk Assessment: Do you want to hurt yourself or someone else? Patient reports no desire to harm self or others. Onset of symptoms was January 05, 2022 at 01:00. 07:14 Method Of Arrival: Ambulatory [facility] 07:14 Acuity: JOEL 3 jl7 Triage Assessment: 07:17 General: Appears in no apparent distress. uncomfortable, Behavior is calm, cooperative, jl7 appropriate for age. Pain: Complains of pain in CHERRY Pain currently is 0 out of 10 on a pain scale. at worst was 3 out of 10 on a pain scale. EENT: Reports sore throat. Historical: - Allergies: 07:17 Soy (rash); jl7 07:17 Sulfa (Sulfonamide Antibiotics) (Hives); jl7 - Home Meds: 07:17 vitamins [Active]; jl7 - PMHx: 07:17 carpal tunnel; Depression; jl7 - PSHx: 07:17 hysteroscopy; jl7 - Immunization history:: Client reports receiving the 2nd dose of the Covid vaccine. - Social history:: Smoking status: Patient denies any tobacco usage or history of. - Family history:: not pertinent. Screenin:30 Abuse screen: Denies threats or abuse. Nutritional screening: No deficits noted. kr3 Tuberculosis screening: No symptoms or risk factors identified. Fall Risk None identified. Assessment: 08:15 General: Appears in no apparent distress. comfortable, Behavior is calm, cooperative. kr3 Neuro: Level of Consciousness is awake, alert, obeys commands, Oriented to person, place, time. 08:15 Pain: Denies pain. Cardiovascular: Reports None. Respiratory: Airway is patent kr3 Respiratory effort is even, unlabored. 08:15 GI: Reports diarrhea. : No signs and/or symptoms were reported regarding the kr3 genitourinary system. EENT: Throat is pink. Derm: No signs and/or symptoms reported regarding the dermatologic system. Musculoskeletal: No signs and/or symptoms reported regarding the musculoskeletal system. 11:30 Reassessment: No changes from previously documented assessment. Patient and/or family kr3 updated on plan of care and expected duration. Pain level reassessed. Patient is alert, oriented x 3, equal unlabored respirations, skin warm/dry/pink. 11:30 Respiratory: Breath sounds are clear. kr3 Vital Signs: 07:14 Pulse 90; Resp 17; Temp 98.8; Pulse Ox 100% ; Weight 108.41 kg; Height 5 ft. 5 in. jl7 (165.10 cm); Pain 3/10; 07:17 BP 179 / 105; jl7 08:15 BP 168 / 97; Pulse 72; Resp 18; Pulse Ox 100% on R/A; kr3 09:15 BP 153 / 99; Pulse 69; Resp 18; Pulse Ox 99% on R/A; kr3 10:15 BP 171 / 103; Pulse 69; Resp 18; Pulse Ox 97% on R/A; kr3 11:29 BP 169 / 94; Pulse 78; Resp 18; Pulse Ox 100% on R/A; kr3 07:14 Body Mass Index 39.77 (108.41 kg, 165.10 cm) jl7 ED Course: 06:42 Patient arrived in ED. bp1 07:17 Triage completed. jl7 07:18 Arm band placed on right wrist. jl7 07:20 Nicholas Multani MD is Attending Physician. christine 07:25 Placed in gown. Bed in low position. Call light in reach. Side rails up X 1. kr3 07:45 Lizeth Woods RN is Primary Nurse. kr3 08:05 Missed attempt(s): 22 gauge in left hand. Bleeding controlled, band aid applied, ll1 catheter tip intact. 08:17 XRAY Chest (1 view) In Process Unspecified. EDMS 08:18 Strep Sent. kr3 08:18 COVID-19/FLU A+B/RSV Sent. kr3 11:30 No provider procedures requiring assistance completed. IV discontinued, intact, kr3 bleeding controlled, No redness/swelling at site. Pressure dressing applied. Administered Medications: 09:22 Drug: NS 0.9% 500 ml Route: IV; Rate: bolus; Site: Other; kr3 11:32 Follow up: Response: No adverse reaction; IV Status: Completed infusion; IV Intake: kr3 500ml 10:36 Drug: NS 0.9% 1000 ml {Note: left EJ .} Route: IV; Rate: 125 ml/hr; Site: Other; kr3 11:31 Follow up: Response: No adverse reaction; IV Status: IV converted to saline lock; IV kr3 Intake: 300ml Medication: 11:31 VIS not applicable for this client. kr3 Intake: 11:31 IV: 300ml; Total: 300ml. kr3 11:32 IV: 500ml; Total: 800ml. kr3 Outcome: 10:59 Discharge ordered by . christine 11:31 Discharged to home ambulatory. kr3 11:31 Condition: stable 11:31 Discharge instructions given to patient, Instructed on discharge instructions, follow up and referral plans. medication usage, Demonstrated understanding of instructions, follow-up care, medications, Prescriptions given X 2. 11:35 Patient left the ED. kr3 Signatures: Dispatcher [employer] EDCA Nicholas Multani MD MD cha Leal, Jahala, RN RN jl7 Miquel Causey RN RN ll1 Montse Clark Kelley RN RN kr3 Corrections: (The following items were deleted from the chart) 07:19 07:14 Chief complaint: Patient states: Sore throat, cough, CHERRY, nausea, diarrhea since jl7 0100 this morning, denies fever jl7 10:43 10:38 General: Appears in no apparent distress. comfortable, Behavior is calm, kr3 cooperative, kr3 10:43 10:38 Neuro: Level of Consciousness is awake, alert, obeys commands, Oriented to kr3 person, place, time, kr3 10: 10:38 Reassessment: kr3 kr3 : 10:38 Pain: Denies pain. kr3 kr3 10: 10:38 Cardiovascular: Reports None kr3 kr3 : 10:38 Respiratory: Airway is patent Respiratory effort is even, unlabored, kr3 kr3 10:53 10:50 Respiratory: kr3 kr3
--- NOTE | 2022-01-05 10:59 | EDPHYS ---
Physician Documentation [facility] Name: Ana Cristina Olivera Age: 66 yrs Sex: Female : 1955 Arrival Date: 01/05/2022 Time: 06:42 Bed 16 Private MD: ED Physician Nicholas Multani HPI: 01/05 10:49 This 66 yrs old Black Female presents to ER via Ambulatory with complaints of Sore christine Throat, Nausea, Headache, Diarrhea. 10:49 The patient presents with sore throat. The patient describes throat pain as scratchy. christine 10:52 Onset: The symptoms/episode began/occurred last night. The patient presents with christine abdominal pain in the upper abdomen, in the lower abdomen, abdominal distention in the upper abdomen, in the lower abdomen. Onset: The symptoms/episode began/occurred last night. The patient presents to the emergency department with nausea, that is mild, diarrhea. Possible causes: unknown. Severity of symptoms: At their worst the symptoms were mild, in the emergency department the symptoms are unchanged. Historical: - Allergies: 07:17 Soy (rash); jl7 07:17 Sulfa (Sulfonamide Antibiotics) (Hives); jl7 - Home Meds: 07:17 vitamins [Active]; jl7 - PMHx: 07:17 carpal tunnel; Depression; jl7 - PSHx: 07:17 hysteroscopy; jl7 - Immunization history:: Client reports receiving the 2nd dose of the Covid vaccine. - Social history:: Smoking status: Patient denies any tobacco usage or history of. - Family history:: not pertinent. ROS: 10:52 Constitutional: Negative for fever, chills, and weight loss, Eyes: Negative for injury, christine pain, redness, and discharge, Neck: Negative for injury, pain, and swelling, Cardiovascular: Negative for chest pain, palpitations, and edema, Respiratory: Negative for shortness of breath, cough, wheezing, and pleuritic chest pain, Back: Negative for injury and pain, : Negative for injury, bleeding, discharge, and swelling, MS/Extremity: Negative for injury and deformity, Skin: Negative for injury, rash, and discoloration, Neuro: Negative for headache, weakness, numbness, tingling, and seizure, Psych: Negative for depression, anxiety, suicide ideation, homicidal ideation, and hallucinations, Allergy/Immunology: Negative for hives, rash, and allergies, Endocrine: Negative for neck swelling, polydipsia, polyuria, polyphagia, and marked weight changes, Hematologic/Lymphatic: Negative for swollen nodes, abnormal bleeding, and unusual bruising. 10:52 ENT: Positive for sore throat. 10:52 ENT: Positive for 10:52 Abdomen/GI: Positive for nausea, diarrhea. Exam: 10:52 Constitutional: This is a well developed, well nourished patient who is awake, alert, christine and in no acute distress. Head/Face: Normocephalic, atraumatic. Eyes: Pupils equal round and reactive to light, extra-ocular motions intact. Lids and lashes normal. Conjunctiva and sclera are non-icteric and not injected. Cornea within normal limits. Periorbital areas with no swelling, redness, or edema. ENT: Nares patent. No nasal discharge, no septal abnormalities noted. Tympanic membranes are normal and external auditory canals are clear. Oropharynx with no redness, swelling, or masses, exudates, or evidence of obstruction, uvula midline. Mucous membranes moist. Neck: Trachea midline, no thyromegaly or masses palpated, and no cervical lymphadenopathy. Supple, full range of motion without nuchal rigidity, or vertebral point tenderness. No Meningismus. Chest/axilla: Normal chest wall appearance and motion. Nontender with no deformity. No lesions are appreciated. Cardiovascular: Regular rate and rhythm with a normal S1 and S2. No gallops, murmurs, or rubs. Normal PMI, no JVD. No pulse deficits. Respiratory: Lungs have equal breath sounds bilaterally, clear to auscultation and percussion. No rales, rhonchi or wheezes noted. No increased work of breathing, no retractions or nasal flaring. Abdomen/GI: Soft, non-tender, with normal bowel sounds. No distension or tympany. No guarding or rebound. No evidence of tenderness throughout. Back: No spinal tenderness. No costovertebral tenderness. Full range of motion. Female : Normal external genitalia. Skin: Warm, dry with normal turgor. Normal color with no rashes, no lesions, and no evidence of cellulitis. MS/ Extremity: Pulses equal, no cyanosis. Neurovascular intact. Full, normal range of motion. Neuro: Awake and alert, GCS 15, oriented to person, place, time, and situation. Cranial nerves II-XII grossly intact. Motor strength 5/5 in all extremities. Sensory grossly intact. Cerebellar exam normal. Normal gait. Psych: Awake, alert, with orientation to person, place and time. Behavior, mood, and affect are within normal limits. 10:52 ECG was reviewed by the Attending Physician. Vital Signs: 07:14 Pulse 90; Resp 17; Temp 98.8; Pulse Ox 100% ; Weight 108.41 kg; Height 5 ft. 5 in. jl7 (165.10 cm); Pain 3/10; 07:17 BP 179 / 105; jl7 08:15 BP 168 / 97; Pulse 72; Resp 18; Pulse Ox 100% on R/A; kr3 09:15 BP 153 / 99; Pulse 69; Resp 18; Pulse Ox 99% on R/A; kr3 10:15 BP 171 / 103; Pulse 69; Resp 18; Pulse Ox 97% on R/A; kr3 11:29 BP 169 / 94; Pulse 78; Resp 18; Pulse Ox 100% on R/A; kr3 07:14 Body Mass Index 39.77 (108.41 kg, 165.10 cm) jl7 Procedures: 09:41 Peripheral line: by aseptic technique a peripheral line was placed in the left external christine jugular vein. MDM: 07:20 Patient medically screened. [facility] 10:56 Differential diagnosis: viral gastroenteritis, gastroenteritis, influenza, laryngitis, christine pharyngitis, gastritis, pancreatitis, urinary tract infection. Data reviewed: vital signs, nurses notes, lab test result(s), EKG, radiologic studies, plain films. Data interpreted: phototypesetting equipment monitor: rate is 69 beats/min, rhythm is regular, Pulse oximetry: on room air is 97 %. Test interpretation: by ED physician or midlevel provider: ECG, plain radiologic studies. Counseling: I had a detailed discussion with the patient and/or guardian regarding: the historical points, exam findings, and any diagnostic results supporting the discharge/admit diagnosis, lab results, radiology results, the need for outpatient follow up, for definitive care, a family practitioner. 01/05 07:28 Order name: Basic Metabolic Panel [facility] 01/05 07:28 Order name: CBC with Diff; Complete Time: 10:48 [facility] 01/05 07:28 Order name: LFT's [facility] 01/05 07:28 Order name: Magnesium [facility] 01/05 07:28 Order name: NT PRO-BNP [facility] 01/05 07:28 Order name: PT-INR; Complete Time: 10:48 [facility] 01/05 07:28 Order name: Troponin HS [facility] 01/05 07:28 Order name: XRAY Chest (1 view); Complete Time: 10:48 [facility] 01/05 07:28 Order name: Lipase [facility] 01/05 07:28 Order name: COVID-19/FLU A+B/RSV; Complete Time: 10:48 [facility] 01/05 07:28 Order name: Strep; Complete Time: 10:48 [facility] 01/05 08:45 Order name: Throat Culture [facility] 01/05 10:49 Order name: Urine Dipstick-Ancillary [facility] 01/05 07:28 Order name: EKG; Complete Time: 07:29 [facility] 01/05 07:28 Order name: Cardiac monitoring; Complete Time: 08:10 [facility] 01/05 07:28 Order name: EKG - Nurse/Tech; Complete Time: 08:10 [facility] 01/05 07:28 Order name: IV Saline Lock; Complete Time: 09:23 [facility] 01/05 07:28 Order name: Labs collected and sent; Complete Time: 09:23 [facility] 01/05 07:28 Order name: O2 Per Protocol; Complete Time: 08:10 [facility] 01/05 07:28 Order name: O2 Sat Monitoring; Complete Time: 08:10 [facility] 01/05 07:28 Order name: Urine Dipstick-Ancillary (obtain specimen); Complete Time: 11:32 [facility] EC:52 Rate is 75 beats/min. Rhythm is regular. QRS [place] is Normal. WA interval is normal. QRS christine interval is normal. QT interval is normal. No Q waves. T waves are Normal. Clinical impression: Normal ECG and No evidence of ischemia. Interpreted by me. Reviewed by me. Administered Medications: 09:22 Drug: NS 0.9% 500 ml Route: IV; Rate: bolus; Site: Other; kr3 11:32 Follow up: Response: No adverse reaction; IV Status: Completed infusion; IV Intake: kr3 500ml 10:36 Drug: NS 0.9% 1000 ml {Note: left EJ .} Route: IV; Rate: 125 ml/hr; Site: Other; kr3 11:31 Follow up: Response: No adverse reaction; IV Status: IV converted to saline lock; IV kr3 Intake: 300ml Disposition Summary: 01/05/22 10:59 Discharge Ordered Location: Home christine Problem: new christine Symptoms: have improved christine Condition: Stable christine Diagnosis - Diarrhea, unspecified christine - Nausea christine - Acute pharyngitis, unspecified christine - Abdominal pain, Generalized christine - Essential (primary) hypertension christine Followup: christine - With: Private Physician - When: 2 - 3 days - Reason: Recheck today's complaints, Continuance of care, Re-evaluation by your physician Discharge Instructions: - Discharge Summary Sheet christine - Food Choices to Help Relieve Diarrhea, Adult christine - Diarrhea, Adult christine - Hypertension, Adult christine - Pharyngitis christine - Sore Throat christine - Hypertension, Adult, Tvgi-iq-Nuux christine - Diarrhea, Adult, Afom-kg-Zsfw christine - How to Take Your Blood Pressure, Cvvv-rc-Pvnw christine - Managing Your Hypertension christine Forms: - Medication Reconciliation Form christine - Thank You Letter christine - Antibiotic Education christine - Prescription Opioid Use [facility] Prescriptions: - Zofran 4 mg Oral Tablet - take 1 tablet by ORAL route every 12 hours As needed; 20 tablet; Refills: 0, christine Product Selection Permitted - dicyclomine 20 mg Oral Tablet - take 1 tablet by ORAL route 4 times per day; 28 tablet; Refills: 0, Product [facility] Selection Permitted Signatures: Dispatcher [employer] Nicholas Astorga MD MD cha Leal, Jahala, RN RN jl7 Lizeth Woods RN RN kr3
[2022-01-05 11:32] LABS: Magnesium 2.1 mg/dL (1.8-2.4)
[2022-01-05 11:45] VITALS: TEMP 98.8
[2022-01-05 11:50] VITALS: BP 169/94; O2SAT 100
--- NOTE | 2022-01-08 19:22 | EKG ---
Test Date: 2022-01-05 Test Time: 07:37:05 Investigator Operator: VICTORIANO MEASUREMENT RESULTS: Intervals: Rate: 75 AR: 166 QRSD: 94 QT: 372 QTc: 415 Eek: P: 45 AR: 166 QRS: -25 T: 41 INTERPRETIVE STATEMENTS: Normal sinus rhythm Normal ECG Compared to ECG 12/31/2017 14:14:04 Myocardial infarct finding no longer present Electronically Signed On 01-08-22 19:11:32 BAND DIRECTOR by Saran Patel
== END 2022-01-05 11:35 | disposition home or self-care (01) ==
LOC: ER 06:39
DX: J02.9 Acute pharyngitis, unspecified (principal); R19.7 Diarrhea, unspecified; R10.84 Generalized abdominal pain; R11.0 Nausea; I10 Essential (primary) hypertension; Z20.822 Contact with and (suspected) exposure to COVID-19
CPT/HCPCS: 96361; 93005; 87070; 85025; 80048; 36415; 83735; 85610; 80076; 87081; 81003; 84484; 83690; 83880; 0241U; 71045; 96360; 99284; J7040; J7030

== ENCOUNTER 2022-08-23 07:01 | Emergency (ER) | payer BC, OTHER ==
--- OUTSIDE RECORDS SUMMARY | 2022-08-23 07:05 | XMS REPORT | Continuity of Care Document ---
:1955 Author Organization [facility] t Address [address] [place] [address] Care Team Providers Name Role Phone Michael Quevedo MD, Daniel Primary Care Physician [phone] ANG CASTELLANOS Attending Clinician Unavailable WEI OLSON M.D. Attending Clinician Unavailable VASCULAR, ELIZABETH Attending Clinician Unavailable RANDY CASSIDY M.D. Attending Clinician Unavailable Problems Condition Condition Condition Status Onset Resolution Last Treating Co mments Source Name Details Category Date Date Treatment Clinician Date No known No known Disease Metho di active active st problems problems Hospit a l Polyarthra Polyarthra Problem Active U T lgia [...] Physici insufficie insufficie an s ncy ncy Allergies, Adverse Reactions, Alerts Allergy Allergy Status [...] Start Date Stop Date Quantity Comments Source [facility] Tobacco use and 2017-10-04 2017-10-04 Smokeless [facility] exposure 00:00:00 00:00:00 tobacco non-user Hospital Alcohol intake 2017-10-04 2017-10-04 Current [facility] 00:00:00 00:00:00 non-drinker of Hospital alcohol (finding) History of Social 2017-10-04 2017-10-[address] function 00:00:00 00:00:00 Hospital Sex Assigned At [birth year] [facility] 00:00:00 00:00:00 [facility] Smoking Status Start Date Stop Date Source Never smoker [facility] Medications Ordered Filled Start Stop Current Ordering Indication Dosage Frequency Signature Comments Components Source Medication Medication Date Date Medication? Clinician (SIG) Name Name gabapentin Yes [facility] (NEURONTIN) [facility]-10 st 100 mg 00:00: [facility]osp[facility] capsule 00 l gabapentin Yes [facility] (NEURONTIN) 6 st 100 mg 00:00: Hospita capsule 00 l [...] MRNA 2020-04-19 Completed [facility] VACCIN[facility] 00:00:00 [facility] PFIZER COVID-19 MRNA 2020-04-19 Completed [facility] VACCINATION 00:00:00 [facility] PFIZER COVID-19 MRNA 2020-03-29 Completed [facility] VACCINATION 00:00:00 [facility] PFIZER COVID-19 MRNA 2020-03-29 Completed [facility] VACCINATION 00:00:00 Hospital Procedures Procedure Date / Time Performed Performing Clinician Sourc e CVRAD - Lower Venous Comp - 2018-07-24 00:00:00 [facility] [id number] History of Varicose Vein [facility] Ligation Plan of Care Planned Activity Planned Date Details Comments Source Future Scheduled 2022-08-05 Screening for [facility] Test 10:00:52 malignant neoplasm of colon (procedure) [code = 388653962] Future Scheduled 2022-08-05 Screening for [facility] Test 10:00:52 malignant neoplasm of colon (procedure) [code = 358188344] Future Scheduled 2022-08-05 Screening for [facility] Test 10:00:52 malignant neoplasm of colon (procedure) [code = 562428628] Future Scheduled 2022-08-05 BREAST CANCER [facility] Test 10:00:52 SCREENING [code = BREAST CANCER SCREENING] Future Scheduled 2022-08-05 Screening for [facility] Test 10:00:52 malignant neoplasm of colon (procedure) [code = 535725640] Future Scheduled 2022-08-05 Screening for [facility] Test 10:00:52 malignant neoplasm of colon (procedure) [code = 104833703] Future Scheduled 2022-08-05 SHINGLES VACCINES (1 [facility] Test 10:00:52 of 2) [code = SHINGLES VACCINES (1 of 2)] Future Scheduled 2022-08-05 65+ PNEUMOCOCCAL [facility] Test 10:00:52 VACCINE (1 - PCV) [code = 65+ PNEUMOCOCCAL VACCINE (1 - PCV)] Future Scheduled 2022-08-05 COVID-19 VACCINE (3 - [facility] Test 10:00:52 Pfizer series) [code = COVID-19 VACCINE (3 - Pfizer series)] Future Scheduled 2022-08-05 INFLUENZA VACCINE [facility] Test 10:00:52 [code = INFLUENZA VACCINE] Future Scheduled 2021-12-24 BREAST CANCER [facility] Test 22:42:21 SCREENING [code = BREAST CANCER SCREENING] Future Scheduled 2021-12-24 COLONOSCOPY SCREENING [facility] Test 22:42:21 [code = COLONOSCOPY SCREENING] Future Scheduled 2021-12-24 SHINGLES VACCINES (1 [facility] Test 22:42:21 of 2) [code = SHINGLES VACCINES (1 of 2)] Future Scheduled 2021-12-24 65+ PNEUMOCOCCAL [facility] Test 22:42:21 VACCINE (1 - PCV) [code = 65+ PNEUMOCOCCAL VACCINE (1 - PCV)] Future Scheduled 2021-12-24 COVID-19 VACCINE (3 - [facility] Test 22:42:21 Booster for Pfizer series) [code = COVID-19 VACCINE (3 - Booster for Pfizer series)] Future Scheduled 2021-12-24 INFLUENZA VACCINE [facility] Test 22:42:21 [code = INFLUENZA VACCINE] Future Scheduled 2021-12-24 HEPATITIS B VACCINES [facility] Test 22:42:21 (1 of 3 - 3-dose series) [code = HEPATITIS B VACCINES (1 of 3 - 3-dose series)] Encounters Start End Encounter Admission Attending Care Care Encounter Source Date/Time Date/Time Type Type Clinicians Facility Department ID 2020-04-19 2020-04-19 Outpatient SANCHEZDIANE, [facility] [id number] [place] 00:00:00 00:00:[address] [facility] 2020-03-29 2020-03-29 Outpatient [facility] [id number] [place] 00:00:00 00:00:[id number] 2018-07-23 2018-07-23 Chely OLSON [facility] Thoracic [id number] [place] 10:00:00 10:00:00 t; WEI OLSON, Surgery - P ryland CARVAJAL M.D. [facility] ans M.DJesica 2018-07-23 2018-07-23 Chely SOTOMAYOR [facility] Thoracic [id number] [place] 09:00:00 09:00:00 t; [place] Surgery - Phys ici VASCULAR, [facility] 2018-05-21 2018-05-21 DILIP [facility] [id number] [place] 11:30:00 11:30:00 t; WEI OLSON cic and Fatimah CARVAJAL M.D. Vascular ans M.D. [facility] [place] 2017-12-08 2017-12-08 DILIP Molina [facility] [id number] [place] 10:00:00 10:00:00 t; RANDY CASSIDY, Fred Oro MXavier 2017-09-08 2017-09-08 DILIP Molina [facility] [id number] [place] 16:00:00 16:00:00 t; RANDY CASSIDY Phys ici FAYYAZ, M.D. ans M.D. 2017-06-09 2017-06-09 Appointmen DILIP CASSIDY [facility] [id number] [place] 11:00:00 11:00:00 t; RANDY CASSIDY Phys ici FAYYAZ, M.D. ans M.D. 2016-08-03 2016-08-03 Appointmen DILIP CASSIDY [facility] [id number] [place] 09:30:00 09:30:00 t; RANDY CASSIDY Phys ici FAYYAZ, M.D. ans M.D. 2016-07-20 2016-07-20 Appointmen DILIP CASSIDY [facility] [id number] [place] 09:30:00 09:30:00 t; RANDY CASSIDY Phys ici FAYYAZ, M.D. ans M.D. Results This patient has no known results.
--- NOTE | 2022-08-23 08:55 | RAD REPORT ---
EXAM DESCRIPTION: RAD - Wrist Right 3 View - 08/23/2022 8:08 am CLINICAL HISTORY: Right wrist pain FINDINGS: No fracture or dislocation is seen. Small calcification adjacent to scaphoid probably chronic
--- NOTE | 2022-08-23 09:38 | ER ---
Nurse's Notes [facility] Name: Ana Cristina Olivera Age: 67 yrs Sex: Female : 1955 Arrival Date: 08/23/2022 Time: 07:01 Bed 6 Private MD: Daniel Rodriguez E Diagnosis: Pain in right wrist Presentation: 08/23 07:21 Chief complaint: Patient states: right wrist pain X 2 weeks , no injury. Coronavirus iw screen: At this time, the client does not indicate any symptoms associated with coronavirus-19. Ebola Screen: Patient negative for fever greater than or equal to 101.5 degrees Fahrenheit, and additional compatible Ebola Virus Disease symptoms Patient denies exposure to infectious person. Patient denies travel to an Ebola-affected area in the 21 days before illness onset. No symptoms or risks identified at this time. Initial Sepsis Screen: Does the patient meet any 2 criteria? No. Patient's initial sepsis screen is negative. Does the patient have a suspected source of infection? No. Patient's initial sepsis screen is negative. Risk Assessment: Do you want to hurt yourself or someone else? Patient reports no desire to harm self or others. Onset of symptoms was August 14, 2022. 07:21 Method Of Arrival: Ambulatory iw 07:21 Acuity: JOEL 4 iw Triage Assessment: 09:50 General: Appears in no apparent distress. comfortable, Behavior is calm, cooperative. db Historical: - Allergies: 07:23 Soy (rash); iw 07:23 Sulfa (Sulfonamide Antibiotics) (Hives); iw - PMHx: 07:23 carpal tunnel; Depression; iw - PSHx: 07:23 hysteroscopy; iw - Immunization history:: Adult Immunizations unknown. - Social history:: Smoking status: Patient denies any tobacco usage or history of. Screenin:27 [facility] ED Fall Risk Assessment (Adult) History of falling in the last 3 months, iw including since admission Confusion or Disorientation Score/Fall Risk Level 0 - 2 = Low Risk. Abuse screen: Denies threats or abuse. Denies injuries from another. Nutritional screening: No deficits noted. Tuberculosis screening: No symptoms or risk factors identified. Assessment: 07:26 General: Appears in no apparent distress. Behavior is calm, cooperative. Pain: iw Complains of pain in right wrist. Neuro: Level of Consciousness is awake, alert, obeys commands, Oriented to person, place, time, situation, Moves all extremities. Full function. Cardiovascular: Patient's skin is warm and dry. Respiratory: Respiratory effort is even, unlabored, Respiratory pattern is regular. Derm: Skin is intact, is healthy with good turgor. Musculoskeletal: Range of motion: intact in all extremities, Reports pain in right wrist. 08:32 Reassessment: Patient appears in no apparent distress at this time. Patient and/or iw family updated on plan of care and expected duration. Pain level reassessed. Patient is alert, oriented x 3, equal unlabored respirations, skin warm/dry/pink. 09:49 Reassessment: Patient appears in no apparent distress at this time. Patient and/or db family updated on plan of care and expected duration. Pain level reassessed. Patient is alert, oriented x 3, equal unlabored respirations, skin warm/dry/pink. neuro intact. splint on and patient states is comfortable. Vital Signs: 07:23 BP 149 / 88; Pulse 72; Resp 16; Temp 98.2; Pulse Ox 99% on R/A; Weight 135.17 kg; iw Height 5 ft. 4 in. ; Pain 6/10; 09:49 BP 143 / 74; Pulse 67; Resp 16; Pulse Ox 100% on R/A; db 07:23 Body Mass Index 51.15 (135.17 kg, 162.56 cm) iw 07:23 Pain Scale: Adult iw ED Course: 07:05 Patient arrived in ED. im 07:05 Daniel Rodriguez MD is Private Physician. im 07:11 Marlo Holbrook DO is Attending Physician. ms3 07:23 Triage completed. iw 07:23 Arm band placed on. iw 07:26 Jessica Palmer, RN is Primary Nurse. iw 07:27 No provider procedures requiring assistance completed. Patient did not have IV access iw during this emergency room visit. 08:09 Wrist Right 3 View XRAY In Process Unspecified. EDMS 08:32 Patient has correct armband on for positive identification. iw 09:28 Velcro wrist splint applied to right wrist. zm 09:36 Raul Wright MD is Referral Physician. ms3 09:48 Pulse ox on. NIBP on. db Administered Medications: No medications were administered Medication: 07:27 VIS not applicable for this client. iw Outcome: 09:37 Discharge ordered by ms3 09:49 Discharged to home ambulatory. rogelio 09:49 Condition: stable 09:49 Discharge instructions given to patient, Instructed on discharge instructions. 09:50 Patient left the ED. db Signatures: Dispatcher [employer] EDJessica Judd, SONALI LYON iw Marlo Holbrook DO DO ms3 Gaye Pan Danielle, RN RN db Britt Cote
--- NOTE | 2022-08-23 09:38 | EDPHYS ---
Physician Documentation [facility] Name: Ana Cristina Olivera Age: 67 yrs Sex: Female : 1955 Arrival Date: 08/23/2022 Time: 07:01 Bed 6 Private MD: Daniel Rodriguez E ED Physician Marlo Holbrook HPI: 08/23 07:25 This 67 yrs old Black Female presents to ER via Ambulatory with complaints of Wrist ms3 Pain. 07:25 67-year-old female with past medical history of carpal tunnel, depression presents for ms3 right wrist pain that has been ongoing for 2 weeks. Patient denies trauma to the wrist. Patient states pain is 7/10 and aching. Patient states the pain is worse with movement. Patient took Aleve and placed her wrist in an immobilizer at night which provided temporary relief.. Historical: - Allergies: 07:23 Soy (rash); iw 07:23 Sulfa (Sulfonamide Antibiotics) (Hives); iw - PMHx: 07:23 carpal tunnel; Depression; iw - PSHx: 07:23 hysteroscopy; iw - Immunization history:: Adult Immunizations unknown. - Social history:: Smoking status: Patient denies any tobacco usage or history of. ROS: 07:25 Constitutional: Negative for fever, and chills. Neck: Negative for injury, pain, and ms3 swelling, Cardiovascular: Negative for chest pain, and palpitations. Respiratory: Negative for shortness of breath, cough, wheezing, and pleuritic chest pain, Abdomen/GI: Negative for abdominal pain, nausea, vomiting, diarrhea, and constipation. 07:25 Skin: Negative for injury, rash, and discoloration. 07:25 MS/extremity: Positive for pain, tenderness, of the Right wrist. Exam: 07:25 Hand exam: is negative for swelling, Exam is positive for pain, tenderness, ROM: no ms3 acute changes, Pulses: noted to be 2+ in the right radial artery, sensation intact. 07:25 Skin: Exam negative for ecchymosis, swelling, Erythema. 07:25 Constitutional: This is a well developed, well nourished patient who is awake, alert, and in no acute distress. Head/Face: Normocephalic, atraumatic. Neck: Trachea midline, no cervical lymphadenopathy. Supple, full range of motion without nuchal rigidity, or vertebral point tenderness. No Meningismus. Chest/axilla: Normal chest wall appearance and motion. Nontender with no deformity. Cardiovascular: Regular rate and rhythm with a normal S1 and S2. No gallops, murmurs, or rubs. Normal PMI, no JVD. No pulse deficits. Respiratory: Lungs have equal breath sounds bilaterally, clear to auscultation and percussion. No rales, rhonchi or wheezes noted. No increased work of breathing, no retractions or nasal flaring. Abdomen/GI: Soft, non-tender, with normal bowel sounds. No distension or tympany. No guarding or rebound. No evidence of tenderness throughout. Skin: Warm, dry with normal turgor. Normal color with no rashes, no lesions, and no evidence of cellulitis. Vital Signs: 07:23 BP 149 / 88; Pulse 72; Resp 16; Temp 98.2; Pulse Ox 99% on R/A; Weight 135.17 kg; iw Height 5 ft. 4 in. ; Pain 6/10; 09:49 BP 143 / 74; Pulse 67; Resp 16; Pulse Ox 100% on R/A; db 07:23 Body Mass Index 51.15 (135.17 kg, 162.56 cm) iw 07:23 Pain Scale: Adult iw MDM: 07:24 Patient medically screened. ms3 07:25 Differential diagnosis: tendonitis, Osteoarthritis. ms3 11:21 Data reviewed: vital signs, nurses notes, and as a result, I will discharge patient. ms3 Independent interpretation of the following test(s) in the Emergency Department X-Ray: My interpretation is Right wrist x-ray reviewed by me does not show fx. Counseling: I had a detailed discussion with the patient and/or guardian regarding: the historical points, exam findings, and any diagnostic results supporting the discharge/admit diagnosis, radiology results, the need for outpatient follow up, to return to the emergency department if symptoms worsen or persist or if there are any questions or concerns that arise at home. Response to treatment: the patient's symptoms have markedly improved after treatment, and as a result, I will discharge patient. Special discussion: I discussed with the patient/guardian in detail that at this point there is no indication for admission to the hospital. It is understood, however, that if the symptoms persist or worsen the patient needs to return immediately for re-evaluation. ED course: Patient states her wrist feels much better after placement and prefabricated wrist splint. Patient to follow-up with orthopedics in 2 to 3 days. Patient understands and agrees with plan. All questions answered. Return precautions discussed include worsening symptoms, or any other concerns. 08/23 07:25 Order name: Wrist Right 3 View XRAY; Complete Time: 08:59 ms3 08/23 08:59 Order name: Splint - Wrist; Complete Time: 09:28 ms3 Administered Medications: No medications were administered Disposition Summary: 08/23/22 09:37 Discharge Ordered Location: Home ms3 Condition: Stable ms3 Diagnosis - Pain in right wrist ms3 Followup: ms3 - With: Raul Wright MD - When: 2 - 3 days - Reason: Recheck today's complaints Discharge Instructions: - Discharge Summary Sheet ms3 - Joint Pain ms3 Forms: - Medication Reconciliation Form ms3 - Thank You Letter ms3 - Antibiotic Education ms3 - Prescription Opioid Use ms3 - [email or web address] ms3 Signatures: Dispatcher [employer] Jessica Villalba, RN RN Marlo Lindo DO DO ms3 Georgette Meneses, RN RN db
[2022-08-23 09:55] VITALS: TEMP 98.2
[2022-08-23 09:56] VITALS: BP 143/74; O2SAT 100
== END 2022-08-23 09:50 | disposition home or self-care (01) ==
LOC: ER 07:01
DX: M25.531 Pain in right wrist (principal); G56.00 Carpal tunnel syndrome, unspecified upper limb; Z88.2 Allergy status to sulfonamides; Z91.018 Allergy to other foods
CPT/HCPCS: 99284

== ENCOUNTER 2022-10-17 17:36 | Emergency (ER) | payer BC, OTHER ==
--- OUTSIDE RECORDS SUMMARY | 2022-10-17 17:40 | XMS REPORT | Continuity of Care Document ---
:1955 Author Organization [facility] t Address [address] [place] [address] Care Team Providers Name Role Phone Michael Quevedo MD, Daniel Primary Care Physician [phone] [email or web address] Attending Clinician Unavailable ANG CASTELLANOS Attending Clinician Unavailable WEI OLSON M.D. Attending Clinician Unavailable GLENN SOTOMAYOR Attending Clinician Unavailable RANDY CASSIDY M.D. Attending Clinician Unavailable [email or web address] Admitting Clinician Unavailable Payers Payer Name Policy Type Policy Number Effective Date Expiration Date S alej[place] [id number] 2016 - [employer] (POS) 00:00:00 [place] [id number] 2020 [employer] 00:00:00 () [id number] 2008 00:00:00 Problems Condition Condition Condition Status Onset Resolution [...] Sulfa Propensi Active [facility] (Sulfona ty to [address] mide adverse 00:00: Hospita Antibiot reaction [...] [facility] Tobacco use and 2017-10-04 2017-10-04 Smokeless [facility] exposure 00:00:00 00:00:00 tobacco non-user Hospital Alcohol intake 2017-10-04 2017-10-04 Current [facility] 00:00:00 00:00:00 non-drinker of Hospital alcohol (finding) History of Social 2017-10-04 2017-10-[address] function 00:00:00 00:00:00 Hospital Sex Assigned At [birth year] [facility] 00:00:00 00:00:00 Hospital Smoking Status Start Date Stop Date Source Never smoker [facility] Medications Ordered Filled Start Stop Current Ordering Indication Dosage Frequency Signature Comments Components Source Medication Medication Date Date Medication? Clinician (SIG) Name Name gabapentin Yes [facility] (NEURONTIN) 6- st 100 mg 00:00: Hospita capsule 00 l gabapentin Yes [facility] (NEURONTIN) 6-[facility] st 100 mg 00:00: Hospita capsule 00 l gabapentin Yes [facility] (NEURONTIN) 6- st 100 mg 00:00: Hospita capsule 00 [...] Date Status Commen ts Source Name Name DANNY ALANISID-19 MRNA 2020-04-19 Completed Meth odist VACCINATION 00:00:00 [facility] PFIZER COVID-19 MRNA 2020-04-19 Completed Meth odist VACCINATION 00:00:00 [facility] PFIZER COVID-19 MRNA 2020-04-19 Completed Meth odist VACCINATION 00:00:00 [facility] PFIZER COVID-19 MRNA 2020-03-29 Completed Meth odist VACCINATION 00:00:00 [facility] PFIZER COVID-19 MRNA 2020-03-29 Completed Meth odist VACCINATION 00:00:00 [facility] PFIZER COVID-19 MRNA 2020-03-29 Completed Meth odist VACCINATION 00:00:00 Hospital Procedures Procedure Date / Time Performed Performing Clinician Sourc e CVRAD - Lower Venous Comp - 2018-07-24 00:00:00 [facility] [id number] History of Varicose Vein [facility] Ligation Plan of Care Planned Activity Planned Date Details Comments Source Future Scheduled 2022-10-14 Screening for [facility] Test 11:58:30 malignant neoplasm of colon (procedure) [code = 280884238] Future Scheduled 2022-10-14 Screening for [facility] Test 11:58:30 malignant neoplasm of colon (procedure) [code = 888887039] Future Scheduled 2022-10-14 Screening for [facility] Test 11:58:30 malignant neoplasm of colon (procedure) [code = 988662489] Future Scheduled 2022-10-14 BREAST CANCER [facility] Test 11:58:30 SCREENING [code = BREAST CANCER SCREENING] Future Scheduled 2022-10-14 Screening for [facility] Test 11:58:30 malignant neoplasm of colon (procedure) [code = 051928458] Future Scheduled 2022-10-14 Screening for [facility] Test 11:58:30 malignant neoplasm of colon (procedure) [code = 010057946] Future Scheduled 2022-10-14 SHINGLES VACCINES (1 Met [facility] Test 11:58:30 of 2) [code = SHINGLES VACCINES (1 of 2)] Future Scheduled 2022-10-14 65+ PNEUMOCOCCAL [facility] Test 11:58:30 VACCINE (1 - PCV) [code = 65+ PNEUMOCOCCAL VACCINE (1 - PCV)] Future Scheduled 2022-10-14 COVID-19 VACCINE (3 - [facility] Test 11:58:30 Pfizer series) [code = COVID-19 VACCINE (3 - Pfizer series)] Future Scheduled 2022-10-14 INFLUENZA VACCINE (#1) [facility] Test 11:58:30 [code = INFLUENZA VACCINE (#1)] Future Scheduled 2022-08-05 Screening for [facility] Test 10:00:52 malignant neoplasm of colon (procedure) [code = 259722583] Future Scheduled 2022-08-05 Screening for [facility] Test 10:00:52 malignant neoplasm of colon (procedure) [code = 149037022] Future Scheduled 2022-08-05 [facility]ening for [facility] Test 10:00:52 malignant neoplasm of colon (procedure) [code = 675471022] Future Scheduled 2022-08-05 BREAST CANCER [facility] Test 10:00:52 SCREENING [code = BREAST CANCER SCREENING] Future Scheduled 2022-08-05 Screening for [facility] Test 10:00:52 malignant neoplasm of colon (procedure) [code = 381874075] Future Scheduled 2022-08-05 Screening for [facility] Test 10:00:52 malignant neoplasm of colon (procedure) [code = 289344479] Future Scheduled 2022-08-05 SHINGLES VACCINES (1 Met [facility] Test 10:00:52 of 2) [code = SHINGLES VACCINES (1 of 2)] Future Scheduled 2022-08-05 65+ [facility]OCCAL [facility] Test 10:00:52 VACCINE (1 - PCV) [code = 65+ PNEUMOCOCCAL VACCINE (1 - PCV)] Future Scheduled 2022-08-05 COVID-19 VACCINE (3 - Me [facility] Test 10:00:52 Pfizer series) [code = COVID-19 VACCINE (3 - Pfizer series)] Future Scheduled 2022-08-05 INFLUENZA VACCINE [facility] Test 10:00:52 [code = INFLUENZA VACCINE] Future Scheduled 2021-12-24 HEPATITIS B VACCINES Met [facility] Test 22:42:21 (1 of 3 - 3-dose series) [code = HEPATITIS B VACCINES (1 of 3 - 3-dose series)] Future Scheduled 2021-12-24 BREAST CANCER [facility] Test 22:42:21 SCREENING [code = BREAST CANCER SCREENING] Future Scheduled 2021-12-24 COLONOSCOPY SCREENING [facility] Test 22:42:21 [code = COLONOSCOPY SCREENING] Future Scheduled 2021-12-24 SHINGLES VACCINES (1 Met [facility] Test 22:42:21 of 2) [code = SHINGLES VACCINES (1 of 2)] Future Scheduled 2021-12-24 65+ [facility]OCOCCAL [facility] Test 22:42:21 VACCINE (1 - PCV) [code = 65+ PNEUMOCOCCAL VACCINE (1 - PCV)] Future Scheduled 2021-12-24 COVID-19 VACCINE (3 - Me [facility] Test 22:42:21 Booster for Pfizer series) [code = COVID-19 VACCINE (3 - Booster for Pfizer series)] Future Scheduled 2021-12-24 INFLUENZA VACCINE [facility] Test 22:42:21 [code = INFLUENZA VACCINE] Encounters Start End Encounter Admission Attending Care Care Encounter Source Date/Time Date/Time Type Type Clinicians Facility Department ID 2022-10-12 2022-10-12 Outpatient GC_GCBZW_Ka PRIV PRIV [id number] [facility] 00:00:00 00:00:00 diyala_S [id number] Medic al 2022-10-09 2022-10-09 Outpatient GC_GCBZW_Ka PRIV PRIV [id number] [facility] 00:00:00 00:00:00 diyala_S [id number] Medic al 2022-09-26 2022-09-26 Outpatient GC_GCBZW_Ka PRIV PRIV [id number] [facility] 00:00:00 00:00:00 diyala_S [id number] Medic al 2022-09-20 2022-09-20 Outpatient GC_GCBZW_Ka PRIV PRIV [id number] [facility] 00:00:00 00:00:00 diyala_S [id number] Medic al 2020-04-19 2020-04-19 Outpatient EMANUEL, [facility] [id number] [place] 00:00:00 00:00:00 [facility] 2020-03-29 2020-03-29 Outpatient [facility] [id number] [place] 00:00:00 00:00:[id number] 2018-07-23 2018-07-23 Appointstewart WESLEY, [facility] Thoracic [id number] [place] 10:00:00 10:00:00 t; WEI OLSON, Surgery - Rony CARVAJAL M.D. [facility] roderick MXavier 2018-07-23 2018-07-23 Appointstewart VASCULAR, [facility] Thoracic [id number] [place] 09:00:00 09:00:00 t; BOONE Surgery - Phys ici VASCULAR, [facility] 2018-05-21 2018-05-21 Chely OLSON [facility] Cardiothora [id number] [place] 11:30:00 11:30:00 t; WEI OLSON, [facility] and Phy bao CARVAJAL M.D. Vascular ans [facility] at [place] 2017-12-08 2017-12-08 Chely KELSIEDILIP MERCER [facility] [id number] [place] 10:00:00 10:00:00 t; RANDY CASSIDY Phys ici FAYYAZ, M.D. ans M.Sarah 2017-09-08 2017-09-08 DILIP Molina [facility] [id number] [place] 16:00:00 16:00:00 t; RANDY CASSIDY Phys ici FAYYAZ, M.D. ans MXavier 2017-06-09 2017-06-09 AppointDILIP Coronel [facility] [id number] [place] 11:00:00 11:00:00 t; RANDY CASSIDY Phys ici FAYYAZ, M.D. ans M.D. 2016-08-03 2016-08-03 DILIP Molina [facility] [id number] [place] 09:30:00 09:30:00 t; RANDY CASSIDY Phys ici FAYYAZ, M.D. ans MXavier 2016-07-20 2016-07-20 DILIP Molina [facility] [id number] [place] 09:30:00 09:30:00 t; RANDY CASSIDY Phys ici FAYYAZ, M.D. ans M.DJesica Results This patient has no known results.
--- NOTE | 2022-10-17 18:17 | ER ---
Nurse's Notes [facility] Name: Ana Cristina Olivera Age: 67 yrs Sex: Female : 1955 Arrival Date: 10/17/2022 Time: 17:36 Bed Waiting Private MD: Diagnosis: Otitis media, unspecified, right ear Presentation: 10/17 18:13 Chief complaint: Patient states: "I'm having severe right ear pain that started 1 week mb9 go. It's making my face ache". Coronavirus screen: Vaccine status: Patient reports receiving the 2nd dose of the covid vaccine. Ebola Screen: No symptoms or risks identified at this time. Initial Sepsis Screen: Does the patient meet any 2 criteria? No. Patient's initial sepsis screen is negative. Does the patient have a suspected source of infection? No. Patient's initial sepsis screen is negative. Risk Assessment: Do you want to hurt yourself or someone else? Patient reports no desire to harm self or others. Onset of symptoms was 2022. 18:13 Method Of Arrival: Ambulatory mb9 18:13 Acuity: JOEL 5 mb9 Triage Assessment: 18:16 General: Appears in no apparent distress. Behavior is calm, cooperative. Pain: mb9 Complains of pain in right ear Pain radiates to mouth Pain currently is 9 out of 10 on a pain scale. Quality of pain is described as aching. EENT: Ear canal w/ drainage noted from right ear. Neuro: [place] Agitation-Sedation Scale (RASS): 0 - Alert and Calm. Cardiovascular: Patient's skin is warm and dry. Respiratory: Airway is patent Respiratory effort is even, unlabored, Respiratory pattern is regular, symmetrical. Derm: Skin is pink, warm \\T\\ dry. Musculoskeletal: Range of motion: intact in all extremities. Historical: - Allergies: 18:15 Soy (rash); mb9 18:15 Sulfa (Sulfonamide Antibiotics) (Hives); mb9 - Home Meds: 18:15 amlodipine oral [Active]; mb9 - PMHx: 18:15 carpal tunnel; Depression; mb9 - PSHx: 18:15 hysteroscopy; mb9 - Immunization history:: Adult Immunizations up to date. - Social history:: Smoking status: Patient denies any tobacco usage or history of. Screenin:18 [facility] ED Fall Risk Assessment (Adult) History of falling in the last 3 months, mb9 including since admission No falls in past 3 months (0 pts) Confusion or Disorientation No (0 pts) Intoxicated or Sedated No (0 pts) Impaired Gait No (0 pts) Mobility Assist Device Used No (0 pt) Altered Elimination No (0 pt) Score/Fall Risk Level 0 - 2 = Low Risk Oriented to surroundings, Maintained a safe environment, Educated pt \\T\\ family on fall prevention, incl call for assistance when getting out of bed. Abuse screen: Denies threats or abuse. Nutritional screening: No deficits noted. Tuberculosis screening: No symptoms or risk factors identified. Assessment: 18:17 Reassessment: see triage assessment. mb9 Vital Signs: 18:13 BP 169 / 95; Pulse 74; Resp 18; Temp 98(TE); Pulse Ox 100% on R/A; Weight 133.81 kg; mb9 Height 5 ft. 5 in. ; Pain 9/10; 18:13 Body Mass Index 49.09 (133.81 kg, 165.1 cm) mb9 18:13 Pain Scale: Adult mb9 ED Course: 17:40 Patient arrived in ED. mg5 17:48 Susie Vizcaino FNP-C [facility] kb 17:48 Johan Swanson MD is Attending Physician. kb 18:13 Arm band placed on. mb9 18:15 Triage completed. mb9 18:17 Client placed on continuous cardiac and pulse oximetry monitoring. NIBP monitoring mb9 applied. 18:17 No provider procedures requiring assistance completed. Patient did not have IV access mb9 during this emergency room visit. 18:19 Jazmin Willett RN is Primary Nurse. mb9 Administered Medications: No medications were administered Medication: 18:17 VIS not applicable for this client. mb9 Outcome: 18:16 Discharge ordered by . kb 18:18 Discharged to home ambulatory. mb9 18:18 Condition: stable 18:18 Discharge instructions given to patient, Instructed on discharge instructions, follow up and referral plans. Demonstrated understanding of instructions, follow-up care, medications, Prescriptions given X 1. 18:19 Patient left the ED. mb9 Signatures: Susie Vizcaino FNP-C FNP-Jazmin Lyon RN RN mb9 Jaqui Horan mg5 Corrections: (The following items were deleted from the chart) 18:17 18:13 Acuity: JOEL 4 mb9 mb9
--- NOTE | 2022-10-17 18:17 | EDPHYS ---
Physician Documentation [facility] [place] Name: Ana Cristina Olivera Age: 67 yrs Sex: Female : 1955 Arrival Date: 10/17/2022 Time: 17:36 Bed Waiting Private MD: ED Physician Johan Swanson HPI: 10/17 18:47 This 67 yrs old Black Female presents to ER via Ambulatory with complaints of Ear Pain kb - Right. 18:47 The patient presents with pain, moderate. The complaints affect the right ear. Onset: kb The symptoms/episode began/occurred 1 week(s) ago. Modifying factors: The symptoms are alleviated by nothing, the symptoms are aggravated by nothing. Associated signs and symptoms: The patient has no apparent associated signs or symptoms. Severity of symptoms: At their worst the symptoms were moderate in the emergency department the symptoms are unchanged. The patient has not experienced similar symptoms in the past. The patient has not recently seen a physician. Historical: - Allergies: 18:15 Soy (rash); mb9 18:15 Sulfa (Sulfonamide Antibiotics) (Hives); mb9 - Home Meds: 18:15 amlodipine oral [Active]; mb9 - PMHx: 18:15 carpal tunnel; Depression; mb9 - PSHx: 18:15 hysteroscopy; mb9 - Immunization history:: Adult Immunizations up to date. - Social history:: Smoking status: Patient denies any tobacco usage or history of. ROS: 18:47 Constitutional: Negative for fever, chills, and weight loss. kb 18:47 ENT: Positive for ear pain. 18:47 All other systems are negative. Exam: 18:47 Constitutional: This is a well developed, well nourished patient who is awake, alert, kb and in no acute distress. Head/Face: Normocephalic, atraumatic. Cardiovascular: Regular rate and rhythm with a normal S1 and S2. No gallops, murmurs, or rubs. No pulse deficits. Respiratory: Respirations even and unlabored. No increased work of breathing. Talking in full sentences Skin: Warm, dry with normal turgor. Normal color. MS/ Extremity: Pulses equal, no cyanosis. Neurovascular intact. Full, normal range of motion. Neuro: Awake and alert, GCS 15, oriented to person, place, time, and situation. Moves all extremities. Normal gait. 18:47 ENT: TM's: bulging, on the right, erythema, is not appreciated. Vital Signs: 18:13 BP 169 / 95; Pulse 74; Resp 18; Temp 98(TE); Pulse Ox 100% on R/A; Weight 133.81 kg; mb9 Height 5 ft. 5 in. ; Pain 9/10; 18:13 Body Mass Index 49.09 (133.81 kg, 165.1 cm) mb9 18:13 Pain Scale: Adult mb9 MDM: 18:16 Patient medically screened. kb 18:47 Differential diagnosis: otitis media, otitis externa, ruptured TM, foreign body, acute kb otalgia. Data reviewed: vital signs, nurses notes. Counseling: I had a detailed discussion with the patient and/or guardian regarding the historical points, exam findings, and any diagnostic results supporting the discharge/admit diagnosis, the need for outpatient follow up, a family practitioner, to return to the emergency department if symptoms worsen or persist or if there are any questions or concerns that arise at home. Administered Medications: No medications were administered Disposition Summary: 10/17/22 18:16 Discharge Ordered Location: Home kb Condition: Stable kb Diagnosis - Otitis media, unspecified, right ear kb Followup: kb - With: Emergency Department - When: As needed - Reason: Worsening of condition Followup: kb - With: Private Physician - When: 2 - 3 days - Reason: Recheck today's complaints, Continuance of care, Re-evaluation by your physician Discharge Instructions: - Discharge Summary Sheet kb - Otitis Media, Adult, [id number] kb Forms: - Medication Reconciliation Form kb - Thank You Letter kb - Antibiotic Education kb - Prescription Opioid Use kb - Patient Portal Instructions kb - Leadership Thank You Letter kb Prescriptions: - Amoxicillin 875 mg Oral Tablet - take 1 tablet by ORAL route every 12 hours for 10 days; 20 tablet; Refills: 0, kb Product Selection Permitted Signatures: Susie Vizcaino FNP-C FNP-Ckb Breneman, Mary Beth RN RN mb9
[2022-10-17 18:23] VITALS: BP 169/95; TEMP 98; O2SAT 100
== END 2022-10-17 18:19 | disposition home or self-care (01) ==
LOC: ER 17:36
DX: H66.91 Otitis media, unspecified, right ear (principal); Z88.2 Allergy status to sulfonamides; Z91.018 Allergy to other foods
CPT/HCPCS: 99283